=== PATIENT | male | born 1960 | race American Indian/Alaskan Native ===

== ENCOUNTER 2017-07-23 11:05 | Emergency (ER) | payer MEDICAID, OTHER ==
[2017-07-23 11:40] LABS: BASO % 0.4 % (0.0-2.0); EOS % 0.2 % (0.0-4.0); HEMOGLOBIN 13.2 g/dL (12.0-18.0); LYMPH # 0.4 K/uL (1.0-4.3); LYMPH % 4.5 % (20.0-40.0); MEAN CELL VOLUME 89.3 fL (80.0-94.0); MEAN CORPUSCULAR HEMOGLOBIN 30.4 pg (27.0-31.0); MEAN CORPUSCULAR HGB CONC 34.1 g/dL (33.0-37.0); MEAN PLATELET VOLUME 8.5 fL (7.2-11.7); MONO # 0.7 K/uL (0.0-0.8); MONO % 8.1 % (0.0-10.0); NEUT # 7.9 K/uL (1.8-7.0); NEUT % 86.8 % (50.0-75.0); PLATELET COUNT 161 K/uL (130-400); RBC 4.34 Mil/uL (4.40-5.90); RED CELL DISTRIBUTION WIDTH 14.3 % (11.5-14.5); WHITE BLOOD COUNT 9.1 K/uL (4.8-10.8)
[2017-07-23 11:52] LABS: ALB/GLOB RATIO 1.1 (1.0-2.1); ALBUMIN 4.2 g/dL (3.5-5.0); ALT/SGPT 65 U/L (21-72); AST/SGOT 71 U/L (17-59); BLOOD UREA NITROGEN 13 mg/dL (9-20); CALCIUM 8.9 mg/dl (8.6-10.4); GFR AFRICAN-AMERICAN > 60; GFR NON-AFRICAN AMERICAN > 60; LIPASE 152 U/L (23-300)
[2017-07-23] MEDS ORDERED: Sodium Chloride 0.9% 1,000 ML IV ONE (11:59)
[2017-07-23] MEDS ORDERED: Iohexol 240 (50 ml) PO STA (11:59)
[2017-07-23 12:15] LABS: BANDS 4 % (0-2); LYMPHOCYTE 2 % (20-40); MONOCYTE 9 % (0-10); NEUTROPHIL 85 % (50-75); PLATELET ESTIMATE NORMAL (NORMAL); TOTAL CELLS COUNTED 100
[2017-07-23] MEDS ORDERED: Morphine 4 MG/ML VIAL ONE (12:15)
[2017-07-23] MEDS ORDERED: Iohexol 240 (50 ml) ONE (12:15)
[2017-07-23] MEDS ORDERED: Potassium Chloride 20 mEq/15 ml LIQ UD PO STA (12:17)
--- NOTE | 2017-07-23 12:24 | C.PDOC ---
History Of Present Illness 57 year old male is brought to the ED by his son for evaluation of abdominal pain and multiple episodes of vomit this morning. As per son, patient was smoking dope yesterday. Patient is a poor historian, uncooperative with history taking and examination. 610 pm pt found to have patchy infiltrate in lingula and bilateral lung bases, on ct scan abdomen, no acute findings on limited study of abdomen (no po contrast). blood cultures drawn, pt given first dose of antibiotics in ED and will d/c with po Levaquin. pt tolerating po fluids in ED and abdominal pain has resolved. 7 10 pm s/o to Dr Varghese to d/c pt after antibiotics started. Time Seen by Provider: 07/23/17 11:40 Chief Complaint (Nursing): Abdominal Pain History Per: Patient, Family History/Exam Limitations: other (No cooperation) Onset/Duration Of Symptoms: Days Current Symptoms Are (Timing): Still Present Radiation Of Pain To:: None Quality Of Discomfort: Unable To Describe Associated Symptoms: Vomiting Exacerbating Factors: None Alleviating Factors: None Recent travel outside of the [place]: No Additional History Per: Patient, Family Past Medical History Reviewed: Historical Data, Nursing Documentation, Vital Signs Vital Signs: Last Vital Signs Temp 98.6 F 07/23/17 14:42 Pulse 50 L 07/23/17 18:07 Resp 16 07/23/17 18:07 BP 139/78 07/23/17 18:07 Pulse Ox 98 07/23/17 19:16 - Medical History PMH: Asthma Surgical History: Cholecystectomy - [facility] Procedures APPLICATION OF SPLINT (11/11/14) REMOV EXT IMMOBILIZATION (11/13/14) Family History: States: Unknown Family Hx - Social History Hx Tobacco Use: No Hx Alcohol Use: No Hx Substance Use: No - Immunization History Hx Tetanus Toxoid Vaccination: No Hx Influenza Vaccination: No Hx Pneumococcal Vaccination: No Review Of Systems Constitutional: Negative for: Fever, Chills Cardiovascular: Negative for: Chest Pain Respiratory: Negative for: Cough, Shortness of Breath Gastrointestinal: Positive for: Vomiting, Abdominal Pain Genitourinary: Negative for: Dysuria Musculoskeletal: Negative for: Back Pain Skin: Negative for: Rash Neurological: Negative for: Weakness, Numbness Physical Exam - Physical Exam Appears: Non-toxic, Unkempt, Other (uncomfortable ) Skin: Normal Color, Warm, Dry Head: Atraumatic, Normacephalic Eye(s): bilateral: Normal Inspection Nose: No Discharge, No Deformity Oral Mucosa: Moist Neck: Normal ROM, Supple Chest: Symmetrical Cardiovascular: Rhythm Regular, No Murmur Respiratory: Normal Breath Sounds, No Rales, No Rhonchi, No Wheezing Gastrointestinal/Abdominal: Soft, Tenderness (diffuse ), No Guarding, No Rebound , Other (vertical scar that according to patient was for "kidney stones") Extremity: Normal ROM, No Deformity, No Swelling Neurological/Psych: Oriented x3, Normal Speech, Normal Cognition Gait: Steady ED Course And Treatment - Laboratory Results Result Diagrams: 07/23/17 11:37 07/23/17 11:37 O2 Sat by Pulse Oximetry: 98 (On RA) Pulse Ox Interpretation: Normal - CT Scan/US CT abd/pelvis Other Rad Studies (CT/US): Read By Radiologist, Radiology Report Reviewed CT/US Interpretation: PROCEDURE: CT Abdomen and Pelvis with contrast. HISTORY : abd pain. COMPARISON: None available. TECHNIQUE: Contrast dose: 100 cc Visipaque 320. Radiation dose: Total exam DLP = 368.10 MGy-cm. This CT exam was performed using one or more of the following dose reduction techniques: Automated exposure control, adjustment of the mA and/or kV according to patient size, and/or use of iterative reconstruction technique. FINDINGS: Examination limited due to lack of IV and oral contrast as well as paucity of intra- abdominal or intrapelvic fat. LOWER THORAX: Patchy consolidations within the lingula and bilateral lower lobes. 12 x 6 mm focal nodular density at the left lung base (series 5, image 13) likely related to consolidation however follow- up to resolution to exclude possibility of pulmonary nodule. No visible pleural effusion or pneumothorax. Small hiatal hernia/distal esophageal wall thickening. LIVER: Unremarkable. GALLBLADDER AND BILE DUCTS: Unremarkable. PANCREAS: Unremarkable. SPLEEN: Unremarkable. ADRENALS: Unremarkable. KIDNEYS AND URETERS: The kidneys enhance symmetrically. No hydronephrosis or obstructing calculus identified. 1.8 cm right renal hypodense lesion measures approximately 6 HU consistent with a cyst. VASCULATURE: No aortic aneurysm. BOWEL: Stomach is nondistended. Lack of oral contrast limits evaluation for bowel pathology. Bowel loops appear within normal limits of caliber without evidence of obstruction. Moderate constipation. APPENDIX: Not visualized. No secondary signs of acute appendicitis. PERITONEUM: No significant free fluid. No definite free air. LYMPH NODES: No bulky adenopathy identified. BLADDER : Unremarkable. REPRODUCTIVE: Prostate gland measures approximately 3.9 x 4.7 cm. BONES: Degenerative changes. OTHER FINDINGS: Partially imaged 26 x 11 mm fatty density in the right anterior subcu chest consistent with lipoma. IMPRESSION: Limited study. Patchy consolidations within the lingula and bilateral lower lobes, favored to reflect pneumonia. 12 x 6 mm focal nodular density at the left lung base likely related to consolidation however follow- up to resolution to exclude possibility of pulmonary nodule. Borderline enlarged prostate gland ; correlate with PSA. Additional findings as above. Medical Decision Making Medical Decision Making: Impression: abdominal pain Plan: * CT abd/pelvis * Labs * Morphine 2 mg IVP * Omnipaque 50 ml PO * Pepcid 20 mg IVP * Zofran 4 mg IVP * Potassium chloride 40 meq PO * IV fluids * UA pt may be in withdrawal from heroin; adfter receiving morphine, pt comfortable, sleeping, in no acute distress. Disposition Counseled Patient/Family Regarding: Studies Performed, Diagnosis, Need For Followup, Rx Given - Disposition Referrals: [facility] at [facility] [Outside] Disposition: HOME/ ROUTINE Disposition Time: 19:16 Condition: IMPROVED Additional Instructions: Take antibiotics as prescribed. Please consider detox program for your substance abuse. Follow up in medical clinic or with your doctor in in 1-2 days. Return to ER for any worsening symptoms. Prescriptions: Levofloxacin [Levaquin] 750 mg PO DAILY #5 tablet Instructions: Community Acquired Pneumonia (ED), Polysubstance Abuse (ED) Forms: [facility] (Czech), General Discharge Instructions - Clinical Impression Clinical Impression: Pneumonia, Polysubstance abuse - PA / STRIP TANK TENDER / Resident Statement MD/DO has reviewed & agrees with the documentation as recorded. - Scribe Statement The provider has reviewed the documentation as recorded by the Scribe Jacobo Eldridge All medical record entries made by the Scribe were at my direction and personally dictated by me. I have reviewed the chart and agree that the record accurately reflects my personal performance of the history, physical exam, medical decision making, and the department course for this patient. I have also personally directed, reviewed, and agree with the discharge instructions and disposition. Physician Patient Turnover Patient Signed Over To: Marito Varghese Handoff Comments: d/c with levaquin po after dose iv antibiotics completed.
[2017-07-23] MEDS ORDERED: Potassium Chloride 20 mEq/15 ml LIQ UD ONE (12:39)
[2017-07-23] MEDS ORDERED: Aluminum Hydroxide/Magnesium Hydroxide Susp (30 mL) PO STA (14:10)
[2017-07-23 14:11] LABS: URINE BILIRUBIN NEGATIVE (NEGATIVE); URINE BLOOD NEGATIVE (NEGATIVE); URINE CLARITY Clear (Clear); URINE COLOR Yellow (YELLOW); URINE GLUCOSE (UA) NORMAL (Normal); URINE LEUKOCYTE ESTERASE NEG Leu/uL (Negative); URINE NITRATE NEGATIVE (NEGATIVE); URINE PROTEIN NEGATIVE (NEGATIVE)
[2017-07-23] MEDS ORDERED: Aluminum Hydroxide/Magnesium Hydroxide Susp (30 mL) ONE (14:14)
[2017-07-23 14:27] LABS: BARBITURATES, UR NEGATIVE (NEGATIVE); BENZODIAZEPINES, UR NEGATIVE (NEGATIVE); PHENCYCLIDINE, UR NEGATIVE (NEGATIVE)
[2017-07-23 14:57] LABS: OPIATES, UR POSITIVE (NEGATIVE)
[2017-07-23] MEDS ORDERED: Iodixanol 320 MG/ML 100 ML BOTTLE IV ONE (16:33)
--- NOTE | 2017-07-23 17:29 | CT ---
PROCEDURE: CT Abdomen and Pelvis with contrast HISTORY: abd pain COMPARISON: None available. TECHNIQUE: Contrast dose: 100 cc Visipaque 320 Radiation dose: Total exam DLP = 368.10 MGy-cm. This CT exam was performed using one or more of the following dose reduction techniques: Automated exposure control, adjustment of the mA and/or kV according to patient size, and/or use of iterative reconstruction technique. FINDINGS: Examination limited due to lack of IV and oral contrast as well as paucity of intra-abdominal or intrapelvic fat. LOWER THORAX: Patchy consolidations within the lingula and bilateral lower lobes. 12 x 6 mm focal nodular density at the left lung base (series 5, image 13) likely related to consolidation however follow-up to resolution to exclude possibility of pulmonary nodule. No visible pleural effusion or pneumothorax. Small hiatal hernia/distal esophageal wall thickening. LIVER: Unremarkable. GALLBLADDER AND BILE DUCTS: Unremarkable. PANCREAS: Unremarkable. SPLEEN: Unremarkable. ADRENALS: Unremarkable. KIDNEYS AND URETERS: The kidneys enhance symmetrically. No hydronephrosis or obstructing calculus identified. 1.8 cm right renal hypodense lesion measures approximately 6 HU consistent with a cyst. VASCULATURE: No aortic aneurysm. BOWEL: Stomach is nondistended. Lack of oral contrast limits evaluation for bowel pathology. Bowel loops appear within normal limits of caliber without evidence of obstruction. Moderate constipation. APPENDIX: Not visualized. No secondary signs of acute appendicitis. PERITONEUM: No significant free fluid. No definite free air. LYMPH NODES: No bulky adenopathy identified. BLADDER: Unremarkable. REPRODUCTIVE: Prostate gland measures approximately 3.9 x 4.7 cm. BONES: Degenerative changes. OTHER FINDINGS: Partially imaged 26 x 11 mm fatty density in the right anterior subcu chest consistent with lipoma IMPRESSION: Limited study. Patchy consolidations within the lingula and bilateral lower lobes, favored to reflect pneumonia. 12 x 6 mm focal nodular density at the left lung base likely related to consolidation however follow-up to resolution to exclude possibility of pulmonary nodule. Borderline enlarged prostate gland ; correlate with PSA. Additional findings as above.
[2017-07-23 17:40] VITALS: O2SAT 98
[2017-07-23] MEDS ORDERED: cefTRIAXone IV 1 gm in Dextros 1 GM in Dextrose 5% In Water 50 ML IVPB STA (18:09)
[2017-07-23] MEDS ORDERED: cefTRIAXone IV 1 gm in Dextros 50 ML IVPB ONE (18:18)
[2017-07-23 19:52] VITALS: BP 136/86; PULSE 56; RESP 18; TEMP 98.2
== END 2017-07-23 20:04 | disposition home or self-care (01) ==
LOC: C.ER 11:05
DX: J18.9 Pneumonia, unspecified organism (principal); F19.10 Other psychoactive substance abuse, uncomplicated
CPT/HCPCS: 74177; 80053; 80320; 80324; 80345; 80346; 80349; 80353; 80358; 80361; 81001; 83690; 83992; 85025; 87040; 96361; 96365; 96367; 96375; 99285; J0696; J2270; J2405; J2765; J7040; Q9966; Q9967

== ENCOUNTER 2017-07-25 00:04 | Inpatient (IN) | payer MEDICAID ==
[2017-07-25] MEDS ORDERED: Sodium Chloride 0.9% 1,000 ML IV ONE ×2 (01:10→03:13)
--- NOTE | 2017-07-25 01:12 | C.PDOC ---
History Of Present Illness Patient states that he has been having abdominal pain and vomited at home some "red stuff" denies coughing up blood. Pt was seen in the ed on 07/23 and diagnosed with pneumonia nd polysubstance abuse. Placed on levaquin. No f/c/ no cp or palpitations. requesting pain medication Time Seen by Provider: 07/25/17 01:09 Chief Complaint (Nursing): Abdominal Pain History Per: Patient History/Exam Limitations: no limitations Onset/Duration Of Symptoms: Hrs Current Symptoms Are (Timing): Still Present Context: Other Severity: Moderate Pain Scale Rating Of: 5 Location Of Pain/Discomfort: Diffuse Radiation Of Pain To:: None Quality Of Discomfort: Sharp, Cramping Associated Symptoms: Nausea, Vomiting. denies: Fever, Chills, Constipation Exacerbating Factors: Food Alleviating Factors: None Last Bowel Movement: Yesterday Recent travel outside of the [place]: No Additional History Per: Patient Past Medical History Reviewed: Historical Data, Nursing Documentation, Vital Signs Vital Signs: Last Vital Signs Temp 98.6 F 07/25/17 00:18 Pulse 85 07/25/17 00:18 Resp 20 07/25/17 00:18 BP 120/79 07/25/17 00:18 Pulse Ox 99 07/25/17 03:46 - Medical History PMH: Gastritis Denies: Asthma Surgical History: Cholecystectomy - [facility] Procedures APPLICATION OF SPLINT (11/11/14) REMOV EXT IMMOBILIZATION (11/13/14) Family History: States: No Known Family Hx - Social History Hx Tobacco Use: No Hx Alcohol Use: Yes Hx Substance Use: No - Immunization History Hx Tetanus Toxoid Vaccination: No Hx Influenza Vaccination: No Hx Pneumococcal Vaccination: No Review Of Systems Constitutional: Negative for: Fever, Chills ENT: Negative for: Throat Pain Cardiovascular: Negative for: Chest Pain Respiratory: Negative for: Shortness of Breath Gastrointestinal: Positive for: Nausea, Vomiting, Abdominal Pain, Hematemesis Musculoskeletal: Negative for: Back Pain Skin: Negative for: Rash Neurological: Negative for: Weakness Psych: Negative for: Anxiety Physical Exam - Physical Exam Appears: Non-toxic Skin: Warm, Dry Head: Normacephalic Eye(s): bilateral: Normal Inspection Oral Mucosa: Moist Teeth: Other (poor dentition) Throat: No Erythema Neck: Supple Chest: Symmetrical Cardiovascular: Rhythm Regular Respiratory: No Rales, No Rhonchi, No Wheezing Gastrointestinal/Abdominal: Soft, Tenderness (diffuse), No Distention, Guarding (voluntary), No Rebound Back: No CVA Tenderness Extremity: Normal ROM Extremity: Bilateral: Atraumatic Pulses: Left Dorsalis Pedis: Normal, Right Dorsalis Pedis: Normal Neurological/Psych: Oriented x3 Gait: Steady ED Course And Treatment - Laboratory Results Result Diagrams: 07/25/17 01:26 07/25/17 01:26 ECG: Interpreted By Me, Viewed By Me ECG Rhythm: Sinus Rhythm (61), Nonspecific Changes O2 Sat by Pulse Oximetry: 99 Pulse Ox Interpretation: Normal - Radiology CXR: Interpreted by Me, Viewed By Me CXR Interpretation: No: Infiltrates, Fracture, Pnemothorax Disposition Discussed With : Mona Puentes Comment: accepted the pt on his service and took over the care at 3:45 AM Doctor Will See Patient In The: Hospital Counseled Patient/Family Regarding: Studies Performed, Diagnosis - Disposition Disposition: HOSPITALIZED Disposition Time: 01:10 Condition: FAIR Forms: [facility] (Samoan) - POA Present On Arrival: None - Clinical Impression Clinical Impression: Abdominal pain, Polysubstance abuse, Pneumonia, Hemoptysis Decision To Admit - Pt Status Changed To: Hospital Disposition Of: Inpatient - Admit Certification Admit to Inpatient:: After my assessment, the patient will require hospitalization for at least two midnights. This is because of the severity of symptoms shown, intensity of services needed, and/or the medical risk in this patient being treated as an outpatient. - InPatient: Physician Admission Certification:: After my assessment, the patient will require hospitalization for at least two midnights. This is because of the severity of symptoms shown, intensity of services needed, and/or the medical risk in this patient being treated as an outpatient. - . Bed Request Type: Regular Admitting Physician: Mona Puentes Patient Diagnosis: Abdominal pain, Polysubstance abuse, Pneumonia
[2017-07-25] MEDS ORDERED: Sodium Chloride 0.9% 1,000 ML ONE (01:18)
[2017-07-25 01:29] LABS: BASO # 0.1 K/uL (0.0-0.2); BASO % 0.6 % (0.0-2.0); EOS # 0.1 K/uL (0.0-0.7); EOS % 0.5 % (0.0-4.0); HEMOGLOBIN 13.6 g/dL (12.0-18.0); LYMPH # 2.1 K/uL (1.0-4.3); LYMPH % 20.6 % (20.0-40.0); MEAN CELL VOLUME 89.6 fL (80.0-94.0); MEAN CORPUSCULAR HEMOGLOBIN 29.9 pg (27.0-31.0); MEAN CORPUSCULAR HGB CONC 33.4 g/dL (33.0-37.0); MEAN PLATELET VOLUME 9.3 fL (7.2-11.7); MONO # 0.7 K/uL (0.0-0.8); MONO % 7.1 % (0.0-10.0); NEUT # 7.3 K/uL (1.8-7.0); NEUT % 71.2 % (50.0-75.0); RBC 4.56 Mil/uL (4.40-5.90); RED CELL DISTRIBUTION WIDTH 14.1 % (11.5-14.5); WHITE BLOOD COUNT 10.2 K/uL (4.8-10.8)
[2017-07-25] MEDS ORDERED: Morphine 4 MG/ML VIAL ONE (01:31)
[2017-07-25 01:39] LABS: PROTHROMBIN TIME 11.2 SECONDS (9.7-12.2)
[2017-07-25 01:51] LABS: ALB/GLOB RATIO 1.1 (1.0-2.1); ALBUMIN 4.2 g/dL (3.5-5.0); ALT/SGPT 50 U/L (21-72); AST/SGOT 72 U/L (17-59); BLOOD UREA NITROGEN 12 mg/dL (9-20); CALCIUM 8.6 mg/dl (8.6-10.4); GFR AFRICAN-AMERICAN > 60; GFR NON-AFRICAN AMERICAN > 60; LIPASE 173 U/L (23-300)
[2017-07-25] MEDS ORDERED: Iohexol 300 100 ML IJ ONE (02:16)
[2017-07-25 02:21] LABS: URINE BILIRUBIN NEGATIVE (NEGATIVE); URINE BLOOD NEGATIVE (NEGATIVE); URINE CLARITY Clear (Clear); URINE COLOR Straw (YELLOW); URINE GLUCOSE (UA) NORMAL (Normal); URINE LEUKOCYTE ESTERASE NEG Leu/uL (Negative); URINE NITRATE NEGATIVE (NEGATIVE); URINE PROTEIN NEGATIVE (NEGATIVE); URINE UROBILINOGEN NORMAL mg/dL (0.2-1.0)
--- NOTE | 2017-07-25 03:16 | CT ---
EXAM: CT Chest With Intravenous Contrast EXAM DATE/TIME: 07/25/2017 2:07 AM CLINICAL HISTORY: 57 years old, male; Pain; Chest pain; Additional info: Pneumonia, ? lingular mass TECHNIQUE: Axial computed tomography images of the chest with intravenous contrast. All CT scans at this facility use one or more dose reduction techniques, viz.: automated exposure control; ma/kV adjustment per patient size (including targeted exams where dose is matched to indication; i.e. head); or iterative reconstruction technique. Coronal and sagittal reformatted images were created and reviewed. CONTRAST: 100 mL of [id number] administered intravenously. COMPARISON: No relevant prior studies available. FINDINGS: LUNGS: Multifocal areas of groundglass density in the lungs bilaterally, with an appearance most suggestive of groundglass consolidation secondary to a multifocal, bilateral pneumonia. The degree of consolidation is greatest in the left upper lobe and lingula, where there are moderate-sized, confluent areas of consolidation seen. There are also patchy areas of consolidation in the lower lobes bilaterally. Right middle and upper lobes appear relatively spared by this process. Small amount of density in the tracheal lumen on the right and the right mainstem bronchus, which could represent mucus plugging or aspirated material. This does not occlude the trachea. No evidence of diffuse pulmonary vascular congestion. No evidence of suspicious, spiculated lung masses. PLEURAL SPACE: No pneumothorax or significant pleural effusions seen. HEART: Heart appears mildly enlarged. Coronary artery calcification. No evidence of significant pericardial effusion. BONES/JOINTS: Findings compatible with a remote fractures involving the left distal clavicle and upper scapula. Osteoarthritic changes involving the right glenohumeral joint. No acute bony abnormality visualized. SOFT TISSUES: Lipoma incidentally noted in the right anterior chest wall soft tissues. VASCULATURE: No evidence of pulmonary embolism involving the large/central pulmonary arteries. The exam is nondiagnostic for small pulmonary emboli, however. Exam is nondiagnostic for the detection of aortic dissection because of suboptimal enhancement of the aorta. LYMPH NODES: No evidence of diffuse lymphadenopathy. GALLBLADDER AND BILE DUCTS: Mild biliary ductal dilatation, most likely related to the post cholecystectomy state. Normal gallbladder is not seen. Recommend correlation with surgical history and LFTs. KIDNEYS AND URETERS: Low density lesion in the right kidney, most likely a cyst. This measures 2 cm. IMPRESSION: - FINDINGS HIGHLY SUSPICIOUS FOR A MULTIFOCAL, BILATERAL GROUNDGLASS PNEUMONIA, GREATEST IN THE LEFT UPPER LOBE AND LINGULA. RECOMMEND FOLLOWUP TO DOCUMENT CLEARING. - Small amount of mucus plugging or aspirated debris in the trachea and right mainstem bronchus. - Otherwise, no evidence of significant acute process. - See above for remaining findings.
[2017-07-25 03:28] LABS: BENZODIAZEPINES, UR NEGATIVE (NEGATIVE)
[2017-07-25 03:31] LABS: BARBITURATES, UR NEGATIVE (NEGATIVE)
[2017-07-25 03:32] LABS: PHENCYCLIDINE, UR NEGATIVE (NEGATIVE)
[2017-07-25 03:33] LABS: OPIATES, UR POSITIVE (NEGATIVE)
[2017-07-25] MEDS ORDERED: Piperacillin/Tazobact 3.375 gm 100 ML IVPB STA (03:39)
[2017-07-25] MEDS ORDERED: Piperacillin/Tazobact 3.375 gm 100 ML IVPB ONE (04:26)
[2017-07-25] MEDS ORDERED: Albuterol-Ipratrop 3 mg / 0.5 (3 ml) UD INH PRN (07:24)
[2017-07-25] MEDS: Enoxaparin 40 mg Syringe SC SCH (09:45)
[2017-07-25] MEDS ORDERED: Multiple Vitamins Oral Solution PO SCH (10:00)
--- NOTE | 2017-07-25 10:22 | RAD ---
PROCEDURE: CHEST RADIOGRAPH, 1 VIEW HISTORY: Abdominal pain COMPARISON: None available. FINDINGS: LUNGS: The lungs are well inflated. There is subsegmental atelectasis in the left lower lobe. PLEURA: No pneumothorax or pleural fluid seen. CARDIOVASCULAR: Normal. OSSEOUS STRUCTURES: No significant abnormalities. VISUALIZED UPPER ABDOMEN: Normal. OTHER FINDINGS: None. IMPRESSION: No active pulmonary disease.
[2017-07-25 10:45] LABS: LEGIONELLA AG URINE NEGATIVE (NEGATIVE)
[2017-07-25] MEDS: Azithromycin 500 MG in Sodium Chloride 0.9% 250 ML IVPB SCH (11:28)
[2017-07-25 11:30] LABS: MYCOPLASMA PNEUMONIAE IGM NEGATIVE (NEGATIVE)
[2017-07-25] MEDS: Vancomycin 1 gm/NS 200 ml 1 GM/200 ML BAG IVPB SCH (13:29)
--- NOTE | 2017-07-25 15:41 | CP.PCM.PN ---
Subjective - Date & Time of Evaluation Date of Evaluation: 07/25/17 Time of Evaluation: 08:00 - Subjective Subjective: PGY 2 medicine progress note for Dr. Puentes: Patient states that he has been having abdominal pain and vomited at home some "red stuff" denies coughing up blood. Pt was seen in the ed on 07/23 and diagnosed with pneumonia and polysubstance abuse. Placed on levaquin but patient has not been taking. Patient states he is short of breath and has a productive cough which sometimes has blood in it. He admits to chills but denies fevers, chest pain, palpitations, N/V, abd pain, pain or swelling in the extremities. Patient states he will get tremors if he does not drink but has never had "bad withdrawal" or withdrawal seizures. Last drink and heroin use was Sunday. PMhx - Asthma, polysubstance use Surg - cholecystectomy Meds - none Allergies - NKDA Fam hx - denies Social - patient has been smoking cigarettes 1 ppd for many years, smokes 4-5 bags heroin daily, admits to alcohol use last drink Sunday AM Objective - Vital Signs/Intake and Output Vital Signs (last 24 hours): Temp Pulse Resp BP Pulse Ox 97.8 F 60 18 116/70 97 07/25/17 11:30 07/25/17 11:30 07/25/17 11:30 07/25/17 11:30 07/25/17 11:30 - Medications Medications: Current Medications Albuterol/Ipratropium (Duoneb 3 Mg/0.5 Mg (3 Ml) Ud) 3 ml INH RQ6 PRN PRN Reason: Wheezing Enoxaparin Sodium (Lovenox) 40 mg SC DAILY [facility] Last Admin: 07/25/17 09:45 Dose: 40 mg Famotidine (Pepcid) 20 mg PO BID [facility] Last Admin: 07/25/17 09:45 Dose: 20 mg Folic Acid (Folic Acid) 1 mg PO DAILY [facility] Last Admin: 07/25/17 09:45 Dose: 1 mg Azithromycin 500 mg/ Sodium (Chloride) 250 mls @ 250 mls/hr IVPB DAILY [facility] Last Admin: 07/25/17 11:28 Dose: 250 mls/hr Ceftriaxone Sodium 1 gm/ (Sodium Chloride) 100 mls @ 100 mls/hr IVPB DAILY [facility] Last Admin: 07/25/17 09:53 Dose: 100 mls/hr Vancomycin/Sodium Chloride (Vancomycin 1 Gm/Ns 200 Ml) 1 gm in 200 mls @ 166.6 mls/hr IVPB Q12H [facility] Stop: 07/30/17 12:31 Last Admin: 07/25/17 13:29 Dose: 166.6 mls/hr Multivitamins/Vitamin C (Multi-Delyn Liquid) 5 ml PO DAILY [facility] Last Admin: 07/25/17 09:45 Dose: 5 ml Thiamine HCl (Vitamin B1 Tab) 100 mg PO DAILY [facility] Last Admin: 07/25/17 09:46 Dose: 100 mg - Labs Labs: 07/25/17 01:26 07/25/17 01:26 PT 11.2 SECONDS (9.7-12.2) 07/25/17 01:26 INR 1.0 07/25/17 01:26 APTT 27 SECONDS (21-34) 07/25/17 01:26 - Constitutional Appears: Non-toxic, No Acute Distress, Unkempt - Head Exam Head Exam: ATRAUMATIC, NORMAL INSPECTION - Eye Exam Eye Exam: EOMI Pupil Exam: NORMAL ACCOMODATION - ENT Exam ENT Exam: Mucous Membranes Dry - Respiratory Exam Respiratory Exam: Decreased Breath Sounds, Wheezes, NORMAL BREATHING PATTERN. absent: Accessory Muscle Use, Respiratory Distress - Cardiovascular Exam Cardiovascular Exam: REGULAR RHYTHM, +S1, +S2 - GI/Abdominal Exam GI & Abdominal Exam: Soft, Normal Bowel Sounds. absent: Distended, Firm, Tenderness - Extremities Exam Extremities Exam: Normal Inspection. absent: Calf Tenderness, Pedal Edema - Back Exam Back Exam: NORMAL INSPECTION. absent: CVA tenderness (L), CVA tenderness (R), paraspinal tenderness - Neurological Exam Neurological Exam: Alert, Awake, Oriented x3 - Psychiatric Exam Psychiatric exam: Normal Affect, Normal Mood - Skin Skin Exam: Diaphoretic, Intact, Normal Color, Warm Assessment and Plan - Assessment and Plan (Free Text) Assessment: Pneumonia f/u sputum culture Urine legionella and mycoplasma negative f/u influenza, Quantiferon CT Chest 07/25 - finding highly suspicious for a multifocal bilateral groundglass pneumonia greatest in the upper lobe and lingula. small amount of mucus plugging or aspirated debris in the trachea and right mainstem brochus Ceftriaxone 1gram IVPB daily (started 07/25) Azithromycin 500mg IVPB daily (started 07/25) Duonebs prn f/u am labs Bacteremia f/u echo to rule out endocarditis Blood cultures 07/23: prelim: gram positive cocci ID consulted, Dr. Vergara - help appreciated Vancomycin 1gram Q12 hours started 07/25 f/u Vanc trough Sunday am Alcohol Use disorder Monitor for signs of withdrawal Alchol level on admission 206 folic acid/mv/thiamine dialy seizure/aspiration precautions Polysubstance use disorder monitor for signs of withdrawal f/u Psych recommendations - Dr. Franco Prophylactic measures Lovenox 40mg SC daily Pepcid 20mg PO BID Regular diet
--- NOTE | 2017-07-25 18:57 | CP.PCM.CON ---
History of Present Illness - History of Present Illness History of Present Illness: Patient states that he has been having abdominal pain and vomited at home some "red stuff" seen in the ed on 07/23 and diagnosed with pneumonia and polysubstance abuse. Placed on levaquin but patient has not been taking. Patient states he is short of breath and has a productive cough which sometimes has blood in it. He admits to chills but denies fevers, chest pain, palpitations, N/V, abd pain, pain or swelling in the extremities. Patient states he will get tremors if he does not drink but has never had "bad withdrawal" or withdrawal seizures. Last drink and heroin use was Sunday. PMhx - Asthma, polysubstance use Surg - cholecystectomy Meds - none Allergies - NKDA Fam hx - denies Social - patient has been smoking cigarettes 1 ppd for many years, smokes 4-5 bags heroin daily, admits to alcohol use last drink Sunday AM Review of Systems - Review of Systems All systems: reviewed and no additional remarkable complaints except - Constitutional Constitutional: As Per HPI - EENT Eyes: absent: As Per HPI, Blind Spots, Blurred Vision, Change in Vision, Decreased Night Vision, Diplopia, Discharge, Dry Eye, Exophthalmos, Floaters, Irritation, Itchy Eyes, Loss of Peripheral Vision, Pain, Photophobia, Requires Corrective Lenses, Sees Flashes, Spots in Vision, Tunnel Vision, Other Visual Disturbances, Loss of Vision, Other Ears: absent: As Per HPI, Decreased Hearing, Ear Discharge, Ear Pain, Tinnitus, Abnormal Hearing, Disequilibrium, Dizziness, Other Nose/Mouth/Throat: absent: As Per HPI, Epistaxis, Nasal Congestion, Nasal Discharge, Nasal Obstruction, Nasal Trauma, Nose Pain, Post Nasal Drip, Sinus Pain, Sinus Pressure, Bleeding Gums, Change in Voice, Dental Pain, Dry Mouth, Dysphagia, Halitosis, Hoarsness, Lip Swelling, Mouth Lesions, Mouth Pain, Odynophagia, Sore Throat, Throat Swelling, Tongue Swelling, Facial Pain, Neck Pain, Neck Mass, Other - Cardiovascular Cardiovascular: absent: As Per HPI, Acrocyanosis, Chest Pain, Chest Pain at Rest , Chest Pain with Activity, Claudication, Diaphoresis, Dyspnea, Dyspnea on Exertion, Edema, Irregular Heart Rhythm, Pain Radiating to Arm/Neck/Jaw, Leg Edema, Leg Ulcers, Lightheadedness, Orthopnea, Palpitations, Paroxysmal Nocturnal Dyspnea, Pedal Edema, Radiating Pain, Rapid Heart Rate, Slow Heart Rate, Syncope, Other - Respiratory Respiratory: As Per HPI, Cough, Hemoptysis - Gastrointestinal Gastrointestinal: absent: As Per HPI, Abdominal Pain, Belching, Bloating, Change in Bowel Habits, Change in Stool Character, Coffee Ground Emesis, Constipation, Cramping, Diarrhea, Dyspepsia, Dysphagia, Early Satiety, Excessive Flatus, Fecal Incontinence, Heartburn, Hematemesis, Hematochezia, Loose Stools, Melena, Nausea, Odynophagia, Temesmus, Vomiting, Other - Genitourinary Genitourinary: absent: As Per HPI, Change in Urinary Stream, Difficulty Urinating, Dysuria, Flank Pain, Hematuria, Pyuria, Nocturia, Urinary Incontinence, Urinary Frequency, Urinary Hesitance, Urinary Urgency, Voiding Freq/Small Amts, Freq UTI, Hx Renal/Bladder Calculi, Hx /Renal Surgery, Bladder Distension, Other - Musculoskeletal Musculoskeletal: absent: As Per HPI, Abnormal Gait, Arthralgias, Atrophy, Back Pain, Deformity, Joint Swelling, Limited Range of Motion, Loss of Height, Muscle Cramps, Muscle Weakness, Myalgias, Neck Pain, Numbness, Radiating Pain into Limb, Stiffness, Tingling, Other - Integumentary Integumentary: absent: As Per HPI, Acne, Alopecia, Bleeding Lesions, Change in Hair, Change in Nails, Change in Pigmentation, Changing Lesions, Dry Skin, Erythema, Furuncle, Hirsutism, Lesions, New Lesions, Non-Healing Lesions, Photosensitivity, Pruritus, Rash, Skin Pain, Skin Ulcer, Sores, Striae, Swelling , Unusual Bruising, Wounds, Jaundice, Other - Neurological Neurological: absent: As Per HPI, Abnormal Gait, Abnormal Hearing, Abnormal Movements, Abnormal Speech, Behavioral Changes, Burning Sensations, Confusion, Convulsions, Disequilibrium, Dizziness, Numbness, Focal Weakness, Frequent Falls , Headaches, Lack of Coordination, Loss of Vision, Memory Loss, Paresthesias, Radicular Pain, Restless Legs, Sensory Deficit, Syncope, Tingling, Tremor, Vertigo, Weakness, Other Visual Disturbances, Other - Psychiatric Psychiatric: absent: As Per HPI, Abnormal Sleep Pattern, Anhedonia, Anxiety, Auditory Hallucinations, Behavioral Changes, Change in Appetite, Change in Libido, Confusion, Depression, Difficulty Concentrating, Hallucinations, Homicidal Ideation, Hopelessness, Irritability, Memory Loss, Mood Swings, Panic Attacks, Paranoia, Suicidal Ideation, Visual Hallucinations, Tactile Hallucinations, Other Past Patient History - Past Social History Smoking Status: Former Smoker - PULMONARY Hx Asthma: No - MUSCULOSKELETAL/RHEUMATOLOGICAL Hx Falls: No - GASTROINTESTINAL Hx Gastritis: Yes - PSYCHIATRIC Hx Substance Use: Yes (ETOH, OPIATES) - SURGICAL HISTORY Hx Cholecystectomy: Yes - ANESTHESIA Hx Anesthesia: Yes Hx Anesthesia Reactions: No Meds Allergies/Adverse Reactions: Allergies Allergy/AdvReac Type Severity Reaction Status Date / Time No Known Allergies Allergy Verified 07/25/17 00:25 - Medications Medications: Current Medications Albuterol/Ipratropium (Duoneb 3 Mg/0.5 Mg (3 Ml) Ud) 3 ml INH RQ6 PRN PRN Reason: Wheezing Enoxaparin Sodium (Lovenox) 40 mg SC DAILY [facility] Last Admin: 07/25/17 09:45 Dose: 40 mg Famotidine (Pepcid) 20 mg PO BID [facility] Last Admin: 07/25/17 17:42 Dose: 20 mg Folic Acid (Folic Acid) 1 mg PO DAILY [facility] Last Admin: 07/25/17 09:45 Dose: 1 mg Azithromycin 500 mg/ Sodium (Chloride) 250 mls @ 250 mls/hr IVPB DAILY [facility] Last Admin: 07/25/17 11:28 Dose: 250 mls/hr Ceftriaxone Sodium 1 gm/ (Sodium Chloride) 100 mls @ 100 mls/hr IVPB DAILY [facility] Last Admin: 07/25/17 09:53 Dose: 100 mls/hr Vancomycin/Sodium Chloride (Vancomycin 1 Gm/Ns 200 Ml) 1 gm in 200 mls @ 166.6 mls/hr IVPB Q12H [facility] Stop: 07/30/17 12:31 Last Admin: 07/25/17 13:29 Dose: 166.6 mls/hr Multivitamins (Hexavitamin) 1 tab PO DAILY [facility] Thiamine HCl (Vitamin B1 Tab) 100 mg PO DAILY [facility] Last Admin: 07/25/17 09:46 Dose: 100 mg Physical Exam - Constitutional Appears: Non-toxic, Chronically Ill - Head Exam Head Exam: NORMOCEPHALIC - Eye Exam Eye Exam: PERRL. absent: Scleral icterus - ENT Exam ENT Exam: Mucous Membranes Dry - Neck Exam Neck exam: Negative for: Lymphadenopathy - Respiratory Exam Respiratory Exam: Decreased Breath Sounds, Rhonchi - Cardiovascular Exam Cardiovascular Exam: REGULAR RHYTHM, +S1, +S2 - GI/Abdominal Exam GI & Abdominal Exam: Diminished Bowel Sounds, Soft. absent: Tenderness - Rectal Exam Rectal Exam: Deferred - Exam Exam: NORMAL INSPECTION - Extremities Exam Extremities exam: Positive for: pedal pulses present. Negative for: calf tenderness, pedal edema, tenderness - Back Exam Back exam: absent: CVA tenderness (L), CVA tenderness (R) - Neurological Exam Neurological exam: Alert, CN II-XII Intact, Oriented x3, Reflexes Normal - Psychiatric Exam Psychiatric exam: Depressed - Skin Skin Exam: Dry Results - Vital Signs Recent Vital Signs: Last Vital Signs Temp 98.3 F 07/25/17 16:00 Pulse 60 07/25/17 16:00 Resp 20 07/25/17 16:00 BP 134/83 07/25/17 16:00 Pulse Ox 97 07/25/17 16:00 - Labs Result Diagrams: 07/25/17 01:26 07/25/17 01:26 Labs: Laboratory Results - last 24 hr 07/25/17 07/25/17 07/25/17 01:26 01:26 01:26 WBC 10.2 RBC 4.56 Hgb 13.6 Hct 40.9 MCV 89.6 MCH 29.9 MCHC 33.4 RDW 14.1 Plt Count 179 MPV 9.3 Neut % (Auto) 71.2 Lymph % (Auto) 20.6 Williamson % (Auto) 7.1 Eos % (Auto) 0.5 Baso % (Auto) 0.6 Neut # (Auto) 7.3 H Lymph # (Auto) 2.1 Williamson # (Auto) 0.7 Eos # (Auto) 0.1 Baso # (Auto) 0.1 PT 11.2 INR 1.0 APTT 27 Sodium 137 Potassium 3.8 Chloride 97 L Carbon Dioxide 27 Anion Gap 17 BUN 12 Creatinine 0.7 L Est GFR ( Amer) > 60 Est GFR (Non-Af Amer) > 60 Random Glucose 97 Calcium 8.6 Total Bilirubin 0.6 AST 72 H ALT 50 Alkaline Phosphatase 93 Total Protein 8.0 Albumin 4.2 Globulin 3.8 Albumin/Globulin Ratio 1.1 Lipase 173 Urine Color Urine Clarity Urine pH Ur Specific [place] Urine Protein Urine Glucose (UA) Urine Ketones Urine Blood Urine Nitrate Urine Bilirubin Urine Urobilinogen Ur Leukocyte Esterase Urine WBC (Auto) Urine RBC (Auto) Urine Opiates Screen Urine Methadone Screen Ur Barbiturates Screen Ur Phencyclidine Scrn Ur Amphetamines Screen U Benzodiazepines Scrn U Oth Cocaine Metabols U Cannabinoids Screen Alcohol, Quantitative Ur L.pneumophila Ag Mycoplasma pneumon IgM 07/25/17 07/25/17 07/25/17 02:15 02:15 04:33 WBC RBC Hgb Hct MCV MCH MCHC RDW Plt Count MPV Neut % (Auto) Lymph % (Auto) Williamson % (Auto) Eos % (Auto) Baso % (Auto) Neut # (Auto) Lymph # (Auto) Williamson # (Auto) Eos # (Auto) Baso # (Auto) PT INR APTT Sodium Potassium Chloride Carbon Dioxide Anion Gap BUN Creatinine Est GFR ( Amer) Est GFR (Non-Af Amer) Random Glucose Calcium Total Bilirubin AST ALT Alkaline Phosphatase Total Protein Albumin Globulin Albumin/Globulin Ratio Lipase Urine Color Straw Urine Clarity Clear Urine pH 6.0 Ur Specific [place] 1.003 Urine Protein Negative Urine Glucose (UA) Normal Urine Ketones Negative Urine Blood Negative Urine Nitrate Negative Urine Bilirubin Negative Urine Urobilinogen Normal Ur Leukocyte Esterase Neg Urine WBC (Auto) < 1 Urine RBC (Auto) < 1 Urine Opiates Screen Positive H Urine Methadone Screen Negative Ur Barbiturates Screen Negative Ur Phencyclidine Scrn Negative Ur Amphetamines Screen Negative U Benzodiazepines Scrn Negative U Oth Cocaine Metabols Negative U Cannabinoids Screen Negative Alcohol, Quantitative 206 H Ur L.pneumophila Ag Mycoplasma pneumon IgM 07/25/17 08:41 WBC RBC Hgb Hct MCV MCH MCHC RDW Plt Count MPV Neut % (Auto) Lymph % (Auto) Williamson % (Auto) Eos % (Auto) Baso % (Auto) Neut # (Auto) Lymph # (Auto) Williamson # (Auto) Eos # (Auto) Baso # (Auto) PT INR APTT Sodium Potassium Chloride Carbon Dioxide Anion Gap BUN Creatinine Est GFR ( Amer) Est GFR (Non-Af Amer) Random Glucose Calcium Total Bilirubin AST ALT Alkaline Phosphatase Total Protein Albumin Globulin Albumin/Globulin Ratio Lipase Urine Color Urine Clarity Urine pH Ur Specific [place] Urine Protein Urine Glucose (UA) Urine Ketones Urine Blood Urine Nitrate Urine Bilirubin Urine Urobilinogen Ur Leukocyte Esterase Urine WBC (Auto) Urine RBC (Auto) Urine Opiates Screen Urine Methadone Screen Ur Barbiturates Screen Ur Phencyclidine Scrn Ur Amphetamines Screen U Benzodiazepines Scrn U Oth Cocaine Metabols U Cannabinoids Screen Alcohol, Quantitative Ur L.pneumophila Ag Negative Mycoplasma pneumon IgM Negative Assessment & Plan (1) Abdominal pain Status: Acute (2) Hemoptysis Status: Acute (3) Pneumonia Status: Acute (4) Polysubstance abuse Status: Acute (5) Alcohol abuse Status: Acute - Assessment and Plan (Free Text) Assessment: await cultures cont iv antibiotics consider echo and CT chest recc pulm eval
[2017-07-26] MEDS: Vancomycin 1 gm/NS 200 ml 1 GM/200 ML BAG IVPB SCH ×2 (00:30→13:25)
[2017-07-26] MEDS: Enoxaparin 40 mg Syringe SC SCH (09:56)
[2017-07-26] MEDS: Multiple Vitamins Tab PO SCH (09:56)
--- NOTE | 2017-07-26 10:00 | PCM.PSYCH ---
Initial Psychiatric Evaluation - Initial Psychiatric Evaluation Type of Admission: Voluntary Legal Status: Capacity Chief Complaint (in patient's own words): "I feel like crap" History of Present Illness and Precipitating Events: Patient is a 57 year old single Male admitted for abdominal pain, hemoptysis, pneumonia, and polysubstance abuse. The patient reports that he lives with his son, has 5 children two of which are minors, and is currently employed as a body artist. The patient reports that he is feeling like crap because of pneumonia, infection in my blood, and Im withdrawing from heroin and alcohol. He complains that he keeps vomiting and cannot eat so he feels like he cant get stronger. The pt reports last snorting heroin on Sunday. He reports that normally snorts 15-17 bags a day. He states that he started using 22 years ago after his mother . He also reports drinking either 2 shots of whiskey or 2 beers daily or the past 22 years in between snorting. The patient reports that he has been to AA, NA, Detox once at [facility] in [place] (15 years ago), Rehab once at [facility] for 18 months ([id number]), Methadone Maintenance in 2000 , Suboxone in 2011. Patient reports symptoms of nausea, vomiting, abdominal pain , chills, tremors. He denies ever having a seizure in the past. He denies any feelings of hopelessness or suicidal ideation. He denies any homicidal ideation and denies any auditory or visual hallucinations. Med Hx - denies Medications - denies Family Psych Hx - denies Family Substance Abuse - My brother used to but has been clean for 18 years.\\ Patient is alert, awake, and oriented. Patient appears disheveled and is sitting up in bed. Patient is cooperative and maintains eye contact during encounter. Patient is talkative and speaks in a clear voice with appropriate tone and responds to questions in a linear fashion. The patient has insight to his situation and remains concentrated and attentive during the encounter. Current Medications: Active Medications Generic Name Dose Route Start Last Admin Trade Name Freq PRN Reason Stop Dose Admin Albuterol/Ipratropium 3 ml 07/25/17 07:24 Duoneb 3 Mg/0.5 Mg (3 Ml) Ud INH RQ6 PRN Wheezing Chlordiazepoxide 25 mg 07/26/17 00:00 07/26/17 05:24 Librium PO 07/29/17 23:59 25 mg Q6 [facility] Administration Taper Chlordiazepoxide 25 mg 07/25/17 23:47 Librium PO Q4H PRN Alcohol Withdrawal Clonidine HCl 0.1 mg 07/25/17 23:48 Catapres PO Q8 PRN COWS Score More or Equal to 5 Enoxaparin Sodium 40 mg 07/25/17 10:00 07/26/17 09:56 Lovenox SC 40 mg DAILY [facility] Administration Famotidine 20 mg 07/25/17 10:00 07/26/17 09:57 Pepcid PO 20 mg BID [facility] Administration Folic Acid 1 mg 07/25/17 10:00 07/26/17 09:56 Folic Acid PO 1 mg DAILY [facility] Administration Azithromycin 500 mg/ Sodium 250 mls @ 250 mls/hr 07/25/17 10:00 07/25/17 11: 28 Chloride IVPB 250 mls/hr DAILY [facility] Administration Ceftriaxone Sodium 1 gm/ 100 mls @ 100 mls/hr 07/25/17 10:00 07/26/17 09:55 Sodium Chloride IVPB 100 mls/hr DAILY [facility] Administration Vancomycin/Sodium Chloride 1 gm in 200 mls @ 166.6 mls/hr 07/25/17 12:30 02/02 00:30 Vancomycin 1 Gm/Ns 200 Ml IVPB 07/30/17 12:31 166.6 mls/hr Q12H [facility] Administration Loperamide HCl 2 mg 07/25/17 23:48 Imodium PO Q8 PRN Diarrhea Multivitamins 1 tab 07/26/17 10:00 07/26/17 09:56 Hexavitamin PO 1 tab DAILY [facility] Administration Ondansetron HCl 4 mg 07/25/17 23:48 Zofran Tab PO Q8 PRN Nausea/Vomiting Promethazine HCl 25 mg 07/25/17 23:48 Phenergan Inj IM QID PRN Nausea/Vomiting, Unable PO Thiamine HCl 100 mg 07/25/17 10:00 07/26/17 09:56 Vitamin B1 Tab PO 100 mg DAILY [facility] Administration Past Psychiatric History - Past Psychiatric History Previous Treatment History: Inpatient Pertinent Medical Hx (Current Medical&Sleep Prob, Allergies): Allergies Allergy/AdvReac Type Severity Reaction Status Date / Time No Known Allergies Allergy Verified 07/25/17 00:25 No Known Home Med 07/25/17 Review of Systems - Constitutional Constitutional: Chills, Sweats, Weakness - Respiratory Respiratory: Cough, Hemoptysis - Gastrointestinal Gastrointestinal: Abdominal Pain, Cramping, Nausea, Vomiting - Neurological Neurological: Weakness - Psychiatric Psychiatric: Change in Appetite. absent: Auditory Hallucinations, Behavioral Changes, Confusion, Depression, Difficulty Concentrating, Hallucinations, Homicidal Ideation, Hopelessness, Suicidal Ideation, Visual Hallucinations Mental Status Examination - Personal Presentation Personal Presentation: Looks older than stated age - Affect Affect: Broad - Motor Activity Motor Activity: Calm - Reliability in Providing Information Reliability in Providing Information: Good - Speech Speech: Organized - Mood Mood: Anxious - Formal Thought Process Formal Thought Process: No Impairment - Obsessions/Compulsions Obsessions: None Compulsions: None - Cognitive Functions Orientation: Person, Place, Situation, Time Sensorium: Alert Attention/Concentration: Attentive Abstract Thinking: [place] Estimate of Intelligence: Average Judgement: Intact, as evidence by: Good judgement, Intact, as evidence by: Insight regarding need for hospitalization Memory: Recent intact, as evidence by: Ability to recall events of the day, Remote intact, as evidenced by: Abilit to recall sig. life events - Risk Risk: Seizure, Withdrawal - Strength & Assets Inventory Strength & Assets Inventory: Family support, Employment status, Employment history, Cooperative DSM 5 DX - DSM 5 DSM 5 Diagnosis: Opioid Use Disorder severe Opioid withdrawal Alcohol Use Disorder Alcohol withdrawal - Recommended/Plan of Treatment Treatment Recommendations and Plan of Treatment: Opioid Use Disorder severe Opioid withdrawal - Methadone Taper - Psychoeducation - Encourage healthy lifestyle choices - Refer to inpatient rehab /IOP after discharge Alcohol Use Disorder Alcohol withdrawal - Librium taper - Psychoeducation - Encourage healthy lifestyle choices - Refer to inpatient rehab /IOP after discharge Pt psychiatrically stable and cleared for discharge. - Smoking Cessation Smoking Cessation Initiated: No
[2017-07-26] MEDS: Azithromycin 500 MG in Sodium Chloride 0.9% 250 ML IVPB SCH (10:51)
--- NOTE | 2017-07-26 11:13 | CARD ---
APPROVED REPORT EXAM: Two-dimensional and M-mode echocardiogram with Doppler and color Doppler. Other Information Quality : [employer] : INDICATION HISTORY DRUG USE, POSITIVE BLOOD CULTUR M-Mode DIMENSIONS RVDd0.62 (2.1-3.2cm)Left Atrium (MM)4.03 (2.5-4.0cm) IVSd0.91 (0.7-1.1cm)Aortic Root3.64 (2.2-3.7cm) LVDd6.38 (4.0-5.6cm)Aortic Cusp Exc.1.98 (1.5-2.0cm) PWd1.01 (0.7-1.1cm)FS (%) 34 % LVDs4.23 (2.0-3.8cm)LVEF (%)61 (>50%) Mitral Valve MV E Dcvfwoau46.3cm/sMV A Bfhuivrq87.3cm/sE/A ratio0.7 TDI E/Lateral E'0.0E/Medial E'0.0 Tricuspid Valve TR Peak [id number]/sTR Peak Gr.[id number] LEFT VENTRICLE The Left Ventricle is moderately dilated. There is normal left ventricular wall thickness. The Ejection Fraction is 50-55%. There is normal LV segmental wall motion. Transmitral Doppler flow pattern is Grade I-abnormal relaxation pattern. RIGHT VENTRICLE The right ventricle is normal size. The right ventricular systolic function is normal. ATRIA The left atrium is mildly dilated. The right atrium size is normal. The interatrial septum is intact with no evidence for an atrial septal defect. AORTIC VALVE The aortic valve is normal in structure. There is trace aortic regurgitation. MITRAL VALVE The mitral valve is normal in structure. Mitral regurgitation is trace to mild. TRICUSPID VALVE The tricuspid valve is normal in structure. There is mild tricuspid regurgitation. Right ventricular systolic pressure is estimated at 25 mmHg. There is no pulmonary hypertension. PULMONIC VALVE The pulmonary valve is normal in structure. GREAT VESSELS The aortic root is normal in size. The IVC is normal in size and collapses >50% with inspiration. PERICARDIAL EFFUSION There is no pericardial effusion. <Conclusion> The Left Ventricle is moderately dilated. The Ejection Fraction is 50-55%. Transmitral Doppler flow pattern is Grade I-abnormal relaxation pattern. The left atrium is mildly dilated. There is trace aortic regurgitation. Mitral regurgitation is trace to mild.
--- NOTE | 2017-07-26 11:32 | CP.PCM.PN ---
Subjective - Date & Time of Evaluation Date of Evaluation: 07/26/17 Time of Evaluation: 08:00 - Subjective Subjective: PGY 2 medicine progress note for Dr. Puentes: Patient was seen and examined at bedside this morning. He stated he is coughing and had some mild shortness of breath. Admits admit to feeling hot. Sates he feels like he is going into withdrawal from heroin use. Patient denies chest pain/palpations. Appetite is minimal. Last BM 2 days ago. Objective - Vital Signs/Intake and Output Vital Signs (last 24 hours): Temp Pulse Resp BP Pulse Ox 98.7 F 50 L 20 154/86 H 98 07/26/17 07:36 07/26/17 07:36 07/26/17 07:36 07/26/17 07:36 07/26/17 07:36 Intake and Output: 07/26/17 07/26/17 06:59 18:59 Intake Total 440 Output Total 1100 Balance -660 - Medications Medications: Current Medications Albuterol/Ipratropium (Duoneb 3 Mg/0.5 Mg (3 Ml) Ud) 3 ml INH RQ6 PRN PRN Reason: Wheezing Chlordiazepoxide (Librium) 25 mg PO Q6 KRISTAL PRN Reason: Taper Stop: 07/29/17 23:59 Last Admin: 07/26/17 05:24 Dose: 25 mg Chlordiazepoxide (Librium) 25 mg PO Q4H PRN PRN Reason: Alcohol Withdrawal Clonidine HCl (Catapres) 0.1 mg PO Q8 PRN PRN Reason: COWS Score More or Equal to 5 Enoxaparin Sodium (Lovenox) 40 mg SC DAILY [facility] Last Admin: 07/26/17 09:56 Dose: 40 mg Famotidine (Pepcid) 20 mg PO BID [facility] Last Admin: 07/26/17 09:57 Dose: 20 mg Folic Acid (Folic Acid) 1 mg PO DAILY [facility] Last Admin: 07/26/17 09:56 Dose: 1 mg Azithromycin 500 mg/ Sodium (Chloride) 250 mls @ 250 mls/hr IVPB DAILY [facility] Last Admin: 07/26/17 10:51 Dose: 250 mls/hr Ceftriaxone Sodium 1 gm/ (Sodium Chloride) 100 mls @ 100 mls/hr IVPB DAILY [facility] Last Admin: 07/26/17 09:55 Dose: 100 mls/hr Vancomycin/Sodium Chloride (Vancomycin 1 Gm/Ns 200 Ml) 1 gm in 200 mls @ 166.6 mls/hr IVPB Q12H [facility] Stop: 07/30/17 12:31 Last Admin: 07/26/17 00:30 Dose: 166.6 mls/hr Loperamide HCl (Imodium) 2 mg PO Q8 PRN PRN Reason: Diarrhea Multivitamins (Hexavitamin) 1 tab PO DAILY [facility] Last Admin: 07/26/17 09:56 Dose: 1 tab Ondansetron HCl (Zofran Tab) 4 mg PO Q8 PRN PRN Reason: Nausea/Vomiting Promethazine HCl (Phenergan Inj) 25 mg IM QID PRN PRN Reason: Nausea/Vomiting, Unable PO Thiamine HCl (Vitamin B1 Tab) 100 mg PO DAILY [facility] Last Admin: 07/26/17 09:56 Dose: 100 mg - Labs Labs: 07/25/17 01:26 07/25/17 01:26 PT 11.2 SECONDS (9.7-12.2) 07/25/17 01:26 INR 1.0 07/25/17 01:26 APTT 27 SECONDS (21-34) 07/25/17 01:26 - Constitutional Appears: Non-toxic, No Acute Distress - Head Exam Head Exam: ATRAUMATIC, NORMAL INSPECTION - Eye Exam Eye Exam: EOMI Pupil Exam: NORMAL ACCOMODATION - Respiratory Exam Respiratory Exam: Decreased Breath Sounds, Rales, NORMAL BREATHING PATTERN. absent: Accessory Muscle Use, Wheezes, Respiratory Distress - Cardiovascular Exam Cardiovascular Exam: REGULAR RHYTHM - GI/Abdominal Exam GI & Abdominal Exam: Soft, Tenderness. absent: Distended, Firm, Guarding, Normal Bowel Sounds - Extremities Exam Extremities Exam: Normal Inspection. absent: Calf Tenderness - Back Exam Back Exam: NORMAL INSPECTION. absent: CVA tenderness (L), CVA tenderness (R), paraspinal tenderness - Neurological Exam Neurological Exam: Alert, Awake, CN II-XII Intact, Normal Gait, Oriented x3 Neuro motor strength exam: Left Upper Extremity: 4, Right Upper Extremity: 4, Left Lower Extremity: 4, Right Lower Extremity: 4 - Psychiatric Exam Psychiatric exam: Depressed, Normal Affect, Normal Mood - Skin Skin Exam: Dry, Intact, Normal Color, Warm Assessment and Plan - Assessment and Plan (Free Text) Assessment: Pneumonia f/u sputum culture Urine legionella and mycoplasma negative influenza negative f/u Quantiferon CT Chest 07/25 - finding highly suspicious for a multifocal bilateral groundglass pneumonia greatest in the upper lobe and lingula. small amount of mucus plugging or aspirated debris in the trachea and right mainstem brochus Ceftriaxone 1gram IVPB daily (started 07/25) Azithromycin 500mg IVPB daily (started 07/25) Duonebs prn f/u am labs on contact isolation Bacteremia Echo - negative for vegetation Blood cultures 07/23: prelim: gram positive cocci ID consulted, Dr. Vergara - help appreciated Vancomycin 1gram Q12 hours started 07/25 f/u Vanc trough Sunday Congestive Heart failure diastolic dysfunction new diagnosis Echo: LV is moderately dilated, EF 50-55%, Grade 1 abnormal relaxation pattern. LA is mildly dilated. trace aortic regurg. mitral regrug is trace to mild will avoid bblock for now due to hx drug/cocaine abuse. Will talk to patient about the dangers of taking beta block with cocain/drug use Will add Losartan 25mg PO daily f/u lipid panel Alcohol Use disorder Monitor for signs of withdrawal Alchol level on admission 206 folic acid/mv/thiamine dialy seizure/aspiration precautions Per psychiatry: - Librium - Psychoeducation - Encourage healthy lifestyle choices - Refer to inpatient rehab Polysubstance use disorder monitor for signs of withdrawal f/u Psych recommendations - Dr. Franco: - Methadone Taper - Psychoeducation - Encourage healthy lifestyle choices - Refer to inpatient rehab Prophylactic measures Lovenox 40mg SC daily Pepcid 20mg PO BID Regular diet
[2017-07-26 11:47] LABS: BASO % 0.5 % (0.0-2.0); EOS % 0.8 % (0.0-4.0); HEMOGLOBIN 13.4 g/dL (12.0-18.0); LYMPH # 1.1 K/uL (1.0-4.3); LYMPH % 17.7 % (20.0-40.0); MEAN CORPUSCULAR HEMOGLOBIN 29.7 pg (27.0-31.0); MEAN CORPUSCULAR HGB CONC 33.4 g/dL (33.0-37.0); MEAN PLATELET VOLUME 9.4 fL (7.2-11.7); MONO # 0.6 K/uL (0.0-0.8); MONO % 9.9 % (0.0-10.0); NEUT # 4.3 K/uL (1.8-7.0); NEUT % 71.1 % (50.0-75.0); NRBC % 0.1 % (0.0-2.0); RBC 4.52 Mil/uL (4.40-5.90); RED CELL DISTRIBUTION WIDTH 13.7 % (11.5-14.5)
[2017-07-26 11:58] LABS: ALB/GLOB RATIO 1.1 (1.0-2.1); ALBUMIN 3.6 g/dL (3.5-5.0); ALT/SGPT 42 U/L (21-72); AST/SGOT 36 U/L (17-59); BLOOD UREA NITROGEN 10 mg/dL (9-20); GFR AFRICAN-AMERICAN > 60; GFR NON-AFRICAN AMERICAN > 60; MAGNESIUM 1.9 mg/dL (1.6-2.3)
[2017-07-26 12:23] LABS: HEPATITIS B SURFACE AG Negative (NEGATIVE)
[2017-07-26 12:31] LABS: HEPATITIS A IGM NEGATIVE (NEGATIVE); HEPATITIS B CORE AB NEGATIVE (NEGATIVE)
[2017-07-26 14:56] LABS: HEPATITIS C ANTIBODY REACTIVE (NEGATIVE)
--- NOTE | 2017-07-26 17:00 | CP.PCM.PN ---
Subjective - Date & Time of Evaluation Date of Evaluation: 07/26/17 Time of Evaluation: 09:00 - Subjective Subjective: less cough still weak iv rx in progress Objective - Vital Signs/Intake and Output Vital Signs (last 24 hours): Temp Pulse Resp BP Pulse Ox 98 F 67 20 123/83 95 07/26/17 16:24 07/26/17 16:24 07/26/17 16:24 07/26/17 16:24 07/26/17 16:24 Intake and Output: 07/26/17 07/26/17 06:59 18:59 Intake Total 440 580 Output Total 1100 Balance -660 580 - Medications Medications: Current Medications Albuterol/Ipratropium (Duoneb 3 Mg/0.5 Mg (3 Ml) Ud) 3 ml INH RQ6 PRN PRN Reason: Wheezing Chlordiazepoxide (Librium) 25 mg PO Q6 KRISTAL PRN Reason: Taper Stop: 07/29/17 23:59 Last Admin: 07/26/17 11:52 Dose: 25 mg Chlordiazepoxide (Librium) 25 mg PO Q4H PRN PRN Reason: Alcohol Withdrawal Clonidine HCl (Catapres) 0.1 mg PO Q8 PRN PRN Reason: COWS Score More or Equal to 5 Enoxaparin Sodium (Lovenox) 40 mg SC DAILY [facility] BEDS AT [facility] Last Admin: 07/26/17 09:56 Dose: 40 mg Famotidine (Pepcid) 20 mg PO BID COUNTS [facility]CLUDE 234 BEDS AT [facility] Last Admin: 07/26/17 09:57 Dose: 20 mg Folic Acid (Folic Acid) 1 mg PO DAILY [facility]S [facility]CLUDE 234 BEDS AT [facility] Last Admin: 07/26/17 09:56 Dose: 1 mg Azithromycin 500 mg/ Sodium (Chloride) 250 mls @ 250 mls/hr IVPB DAILY [facility]S [facility]CLUDE 234 BEDS AT [facility] Last Admin: 07/26/17 10:51 Dose: 250 mls/hr Ceftriaxone Sodium 1 gm/ (Sodium Chloride) 100 mls @ 100 mls/hr IVPB DAILY [facility]S [facility]CLUDE 234 BEDS AT [facility] Last Admin: 07/26/17 09:55 Dose: 100 mls/hr Vancomycin/Sodium Chloride (Vancomycin 1 Gm/Ns 200 Ml) 1 gm in 200 mls @ 166.6 mls/hr IVPB Q12H COUNTS [facility]CLUDE 234 BEDS AT [facility] Stop: 07/30/17 12:31 Last Admin: 07/26/17 13:25 Dose: 166.6 mls/hr Loperamide HCl (Imodium) 2 mg PO Q8 PRN PRN Reason: Diarrhea Losartan Potassium (Cozaar) 25 mg PO DAILY COUNTS [facility]CLUDE 234 BEDS AT [facility] Multivitamins (Hexavitamin) 1 tab PO DAILY [facility]S [facility]CLUDE 234 BEDS AT [facility] Last Admin: 07/26/17 09:56 Dose: 1 tab Ondansetron HCl (Zofran Tab) 4 mg PO Q8 PRN PRN Reason: Nausea/Vomiting Promethazine HCl (Phenergan Inj) 25 mg IM QID PRN PRN Reason: Nausea/Vomiting, Unable PO Thiamine HCl (Vitamin B1 Tab) 100 mg PO DAILY [facility]S [facility]CLUDE 234 BEDS AT [facility] Last Admin: 07/26/17 09:56 Dose: 100 mg - Labs Labs: 07/26/17 11:30 07/26/17 11:30 PT 11.2 SECONDS (9.7-12.2) 07/25/17 01:26 INR 1.0 07/25/17 01:26 APTT 27 SECONDS (21-34) 07/25/17 01:26 - Constitutional Appears: Non-toxic, Chronically Ill - Head Exam Head Exam: NORMOCEPHALIC - Eye Exam Eye Exam: PERRL - ENT Exam ENT Exam: Mucous Membranes Dry - Neck Exam Neck Exam: absent: Lymphadenopathy - Respiratory Exam Respiratory Exam: Decreased Breath Sounds, Rhonchi - Cardiovascular Exam Cardiovascular Exam: REGULAR RHYTHM - GI/Abdominal Exam GI & Abdominal Exam: Distended, Soft - Rectal Exam Rectal Exam: Deferred - Exam Exam: NORMAL INSPECTION Assessment and Plan (1) Abdominal pain Status: Acute (2) Hemoptysis Status: Acute (3) Pneumonia Status: Acute (4) Polysubstance abuse Status: Acute (5) Alcohol abuse Status: Acute - Assessment and Plan (Free Text) Assessment: await cultures cont iv rx
[2017-07-27] MEDS: Vancomycin 1 gm/NS 200 ml 1 GM/200 ML BAG IVPB SCH ×3 (00:37→23:59)
[2017-07-27 08:15] LABS: BASO % 0.6 % (0.0-2.0); EOS # 0.1 K/uL (0.0-0.7); EOS % 2.2 % (0.0-4.0); HEMOGLOBIN 13.4 g/dL (12.0-18.0); LYMPH # 1.2 K/uL (1.0-4.3); LYMPH % 26.6 % (20.0-40.0); MEAN CELL VOLUME 89.6 fL (80.0-94.0); MEAN CORPUSCULAR HEMOGLOBIN 29.8 pg (27.0-31.0); MEAN CORPUSCULAR HGB CONC 33.2 g/dL (33.0-37.0); MEAN PLATELET VOLUME 9.2 fL (7.2-11.7); MONO # 0.5 K/uL (0.0-0.8); MONO % 11.8 % (0.0-10.0); NEUT # 2.7 K/uL (1.8-7.0); NEUT % 58.8 % (50.0-75.0); NRBC % 0.3 % (0.0-2.0); RBC 4.5 Mil/uL (4.40-5.90); RED CELL DISTRIBUTION WIDTH 13.8 % (11.5-14.5); WHITE BLOOD COUNT 4.6 K/uL (4.8-10.8)
[2017-07-27 08:20] LABS: ALBUMIN 3.5 g/dL (3.5-5.0); ALT/SGPT 39 U/L (21-72); AST/SGOT 40 U/L (17-59); BLOOD UREA NITROGEN 10 mg/dL (9-20); CALCIUM 8.8 mg/dl (8.6-10.4); GFR AFRICAN-AMERICAN > 60; GFR NON-AFRICAN AMERICAN > 60; HDL CHOLESTEROL 79 mg/dL (30-70); MAGNESIUM 1.8 mg/dL (1.6-2.3)
[2017-07-27 08:31] LABS: LDL CHOLESTEROL 76 mg/dL (0-129)
[2017-07-27] MEDS: Enoxaparin 40 mg Syringe SC SCH (09:08)
[2017-07-27] MEDS: Multiple Vitamins Tab PO SCH (09:09)
--- NOTE | 2017-07-27 10:03 | CP.PCM.PN ---
Subjective - Date & Time of Evaluation Date of Evaluation: 07/28/17 Time of Evaluation: 11:12 - Subjective Subjective: PGY 2 Medicine Note- Dr. Puentes's service Patient seen and examined in no apparent acute distress. Patient reports having trouble eating certain foods due to dental oral pain. Patient requested food to be softer if possible. Patient states that he feels better today as compared to the day before. He denies chest pain, headaches, palpitations, nausea, vomiting , or diarrhea at this time. Objective - Vital Signs/Intake and Output Vital Signs (last 24 hours): Temp Pulse Resp BP Pulse Ox 98.3 F 98 H 20 135/83 96 07/27/17 07:25 07/27/17 07:25 07/27/17 07:25 07/27/17 07:25 07/27/17 07:25 - Medications Medications: Current Medications Albuterol/Ipratropium (Duoneb 3 Mg/0.5 Mg (3 Ml) Ud) 3 ml INH RQ6 PRN PRN Reason: Wheezing Chlordiazepoxide (Librium) 25 mg PO TID [facility] PRN Reason: Taper Stop: 07/29/17 23:59 Last Admin: 07/27/17 09:08 Dose: 25 mg Chlordiazepoxide (Librium) 25 mg PO Q4H PRN PRN Reason: Alcohol Withdrawal Last Admin: 07/27/17 00:37 Dose: 25 mg Clonidine HCl (Catapres) 0.1 mg PO Q8 PRN PRN Reason: COWS Score More or Equal to 5 Enoxaparin Sodium (Lovenox) 40 mg SC DAILY [facility] Last Admin: 07/27/17 09:08 Dose: 40 mg Famotidine (Pepcid) 20 mg PO BID [facility] Last Admin: 07/27/17 09:08 Dose: 20 mg Folic Acid (Folic Acid) 1 mg PO DAILY [facility] Last Admin: 07/27/17 09:09 Dose: 1 mg Azithromycin 500 mg/ Sodium (Chloride) 250 mls @ 250 mls/hr IVPB DAILY [facility] Last Admin: 07/26/17 10:51 Dose: 250 mls/hr Ceftriaxone Sodium 1 gm/ (Sodium Chloride) 100 mls @ 100 mls/hr IVPB DAILY [facility] Last Admin: 07/27/17 09:23 Dose: 100 mls/hr Vancomycin/Sodium Chloride (Vancomycin 1 Gm/Ns 200 Ml) 1 gm in 200 mls @ 166.6 mls/hr IVPB Q12H [facility] Stop: 07/30/17 12:31 Last Admin: 07/27/17 00:37 Dose: 166.6 mls/hr Loperamide HCl (Imodium) 2 mg PO Q8 PRN PRN Reason: Diarrhea Losartan Potassium (Cozaar) 25 mg PO DAILY [facility] Last Admin: 07/27/17 09:09 Dose: 25 mg Methadone HCl (Methadone) 15 mg PO DAILY [facility] PRN Reason: Taper Stop: 07/31/17 09:59 Last Admin: 07/27/17 09:09 Dose: 15 mg Multivitamins (Hexavitamin) 1 tab PO DAILY [facility] Last Admin: 07/27/17 09:09 Dose: 1 tab Ondansetron HCl (Zofran Tab) 4 mg PO Q8 PRN PRN Reason: Nausea/Vomiting Promethazine HCl (Phenergan Inj) 25 mg IM QID PRN PRN Reason: Nausea/Vomiting, Unable PO Thiamine HCl (Vitamin B1 Tab) 100 mg PO DAILY [facility] Last Admin: 07/27/17 09:08 Dose: 100 mg - Labs Labs: 07/27/17 07:42 07/27/17 07:42 PT 11.2 SECONDS (9.7-12.2) 07/25/17 01:26 INR 1.0 07/25/17 01:26 APTT 27 SECONDS (21-34) 07/25/17 01:26 - Constitutional Appears: Non-toxic - Head Exam Head Exam: NORMAL INSPECTION - Eye Exam Eye Exam: EOMI, Normal appearance Pupil Exam: NORMAL ACCOMODATION, PERRL - ENT Exam ENT Exam: Mucous Membranes Moist - Neck Exam Neck Exam: Full ROM - Respiratory Exam Respiratory Exam: NORMAL BREATHING PATTERN - GI/Abdominal Exam GI & Abdominal Exam: Soft, Normal Bowel Sounds - Extremities Exam Extremities Exam: Full ROM - Neurological Exam Neurological Exam: Alert, Awake, Oriented x3 - Psychiatric Exam Psychiatric exam: Normal Affect, Normal Mood - Skin Skin Exam: Intact, Normal Color Assessment and Plan - Assessment and Plan (Free Text) Assessment: Pneumonia Sputum culture- normal adali Urine legionella and mycoplasma negative influenza negative f/u Quantiferon CT Chest 07/25 - finding highly suspicious for a multifocal bilateral groundglass pneumonia greatest in the upper lobe and lingula. small amount of mucus plugging or aspirated debris in the trachea and right mainstem brochus Ceftriaxone 1gram IVPB daily (started 07/25) Azithromycin 500mg IVPB daily (started 07/25) Duonebs prn f/u am labs on contact isolation Bacteremia Echo - negative for vegetation Blood cultures 07/23: prelim: gram positive cocci ID consulted, Dr. Vergara - help appreciated Vancomycin 1gram Q12 hours started 07/25 On Florastor Vanc trough 5.6 F/U next trough 07/28 at 21:00 Congestive Heart failure diastolic dysfunction new diagnosis Echo: LV is moderately dilated, EF 50-55%, Grade 1 abnormal relaxation pattern. LA is mildly dilated. trace aortic regurg. mitral regrug is trace to mild will avoid bblock for now due to hx drug/cocaine abuse. Will talk to patient about the dangers of taking beta block with cocaine/drug use Losartan 25mg PO daily Lipid panel within normal limits Alcohol Use disorder Monitor for signs of withdrawal Alcohol level on admission 206 folic acid/mv/thiamine dialy seizure/aspiration precautions Per psychiatry: - Librium - Psychoeducation - Encourage healthy lifestyle choices - Refer to inpatient rehab Polysubstance use disorder monitor for signs of withdrawal f/u Psych recommendations - Dr. Franco: - Methadone Taper - Psychoeducation - Encourage healthy lifestyle choices - Refer to inpatient rehab Prophylactic measures Lovenox 40mg SC daily Pepcid 20mg PO BID Regular diet Discussed with attending; all management and planning per Dr. Puentes.
[2017-07-27] MEDS: Azithromycin 500 MG in Sodium Chloride 0.9% 250 ML IVPB SCH (10:34)
--- NOTE | 2017-07-27 16:03 | PCM.PYCHPN ---
Psychiatric Progress Note - Psychiatric Progress Note Patient seen today, length of contact: 15 min Patient Chief Complaint: "I m feeling better" Problems Identified/Issues Discussed: Patient seen and evaluated, chart reviewed and discussed with the nurse. Patient reports improvement in his mood and reports improvement in the anxiety symptoms. Patient reports withdrawal symptoms including nausea, headaches, cramps and sweating. He denies any auditory or visual hallucinations. He remained calm and cooperative. He denies any feelings of hopelessness and helplessness. He is taking medication and denies any side effects. He needs more time for stabilization. Supportive therapy and psychoeducation were given. Medication Change: No Medical Record Reviewed: Yes Mental Status Examination - Cognitive Function Orientation: Person, Place, Situation, Time Memory: Intact Attention: WNL Concentration: Poor Association: WNL Fund of Knowledge: Poor - Mood Mood: Anxious - Affect Affect: Broad - Speech Speech: Soft - Formal Thought Process Formal Thought Process: No Impairment - Suicidal Ideation Suicidal Ideation: No - Homicidal Ideation Homicidal Ideation: No Goal/Treatment Plan - Goal/Treatment Plan Need for Continued Stay: Other Progress Toward Problem(s) and Goals/Treatment Plan: Opioid Use Disorder severe Opioid withdrawal - Methadone Taper - Psychoeducation - Encourage healthy lifestyle choices - Refer to inpatient rehab /IOP after discharge Alcohol Use Disorder Alcohol withdrawal - Librium taper - Psychoeducation - Encourage healthy lifestyle choices - Refer to inpatient rehab /IOP after discharge Pt psychiatrically stable and cleared for discharge.
[2017-07-28 00:51] LABS: TB ANTIGEN MINUS NIL 8.36 IU/mL
[2017-07-28] MEDS ORDERED: Benzocaine 7.5% 5.1 GM TUBE MM PRN (06:00)
[2017-07-28 08:30] LABS: BASO % 0.7 % (0.0-2.0); EOS # 0.2 K/uL (0.0-0.7); EOS % 3.4 % (0.0-4.0); HEMOGLOBIN 13.5 g/dL (12.0-18.0); LYMPH # 1.4 K/uL (1.0-4.3); LYMPH % 28.9 % (20.0-40.0); MEAN CELL VOLUME 88.4 fL (80.0-94.0); MEAN PLATELET VOLUME 8.6 fL (7.2-11.7); MONO # 0.6 K/uL (0.0-0.8); MONO % 13.4 % (0.0-10.0); NEUT # 2.6 K/uL (1.8-7.0); NEUT % 53.6 % (50.0-75.0); NRBC % 0.1 % (0.0-2.0); RBC 4.5 Mil/uL (4.40-5.90); RED CELL DISTRIBUTION WIDTH 13.9 % (11.5-14.5); WHITE BLOOD COUNT 4.8 K/uL (4.8-10.8)
[2017-07-28 08:33] LABS: ALBUMIN 3.6 g/dL (3.5-5.0); ALT/SGPT 36 U/L (21-72); AST/SGOT 33 U/L (17-59); BLOOD UREA NITROGEN 8 mg/dL (9-20); GFR AFRICAN-AMERICAN > 60; GFR NON-AFRICAN AMERICAN > 60
[2017-07-28] MEDS: Saccharomyces Boulardi 250 mg Cap PO SCH ×2 (09:09→17:39)
[2017-07-28] MEDS: Enoxaparin 40 mg Syringe SC SCH (09:09)
[2017-07-28] MEDS: Multiple Vitamins Tab PO SCH (09:11)
[2017-07-28] MEDS ORDERED: Potassium Chloride 20 mEq ER Tab PO ONE (10:15)
[2017-07-28] MEDS: Azithromycin 500 MG in Sodium Chloride 0.9% 250 ML IVPB SCH (10:33)
[2017-07-28] MEDS: Vancomycin 1 gm/NS 200 ml 1 GM/200 ML BAG IVPB SCH (12:06)
--- NOTE | 2017-07-28 12:25 | CARD ---
APPROVED REPORT EKG Measurement Heart [id number] <Conclusion> Normal sinus rhythm Normal ECG
[2017-07-29] MEDS: Vancomycin 1 gm/NS 200 ml 1 GM/200 ML BAG IVPB SCH ×2 (00:45→12:13)
[2017-07-29 07:17] LABS: BASO % 0.5 % (0.0-2.0); EOS # 0.2 K/uL (0.0-0.7); EOS % 2.9 % (0.0-4.0); HEMOGLOBIN 12.8 g/dL (12.0-18.0); LYMPH # 1.8 K/uL (1.0-4.3); LYMPH % 30.3 % (20.0-40.0); MEAN CELL VOLUME 89.9 fL (80.0-94.0); MEAN CORPUSCULAR HEMOGLOBIN 29.4 pg (27.0-31.0); MEAN CORPUSCULAR HGB CONC 32.7 g/dL (33.0-37.0); MEAN PLATELET VOLUME 8.9 fL (7.2-11.7); MONO # 0.7 K/uL (0.0-0.8); MONO % 12.1 % (0.0-10.0); NEUT # 3.2 K/uL (1.8-7.0); NEUT % 54.2 % (50.0-75.0); RBC 4.37 Mil/uL (4.40-5.90); RED CELL DISTRIBUTION WIDTH 14.1 % (11.5-14.5); WHITE BLOOD COUNT 5.9 K/uL (4.8-10.8)
[2017-07-29 07:51] LABS: ALB/GLOB RATIO 1.1 (1.0-2.1); ALBUMIN 3.6 g/dL (3.5-5.0); ALT/SGPT 35 U/L (21-72); AST/SGOT 38 U/L (17-59); BLOOD UREA NITROGEN 9 mg/dL (9-20); CALCIUM 9.1 mg/dl (8.6-10.4); GFR AFRICAN-AMERICAN > 60; GFR NON-AFRICAN AMERICAN 57
[2017-07-29] MEDS: Enoxaparin 40 mg Syringe SC SCH (09:20)
[2017-07-29] MEDS: Saccharomyces Boulardi 250 mg Cap PO SCH ×2 (09:21→17:43)
[2017-07-29] MEDS: Multiple Vitamins Tab PO SCH (09:22)
[2017-07-29] MEDS: Azithromycin 500 MG in Sodium Chloride 0.9% 250 ML IVPB SCH (10:34)
--- NOTE | 2017-07-29 15:32 | CP.PCM.PN ---
Subjective - Date & Time of Evaluation Date of Evaluation: 07/29/17 Time of Evaluation: 09:00 - Subjective Subjective: NO FEVER LESS COUGH [employer] SMEARS PENDING IV RX IN PROGRESS Objective - Vital Signs/Intake and Output Vital Signs (last 24 hours): Temp Pulse Resp BP Pulse Ox 98.0 F 62 20 97/61 L 99 07/29/17 07:25 07/29/17 07:25 07/29/17 07:25 07/29/17 07:25 07/29/17 07:25 Intake and Output: 07/29/17 07/29/17 06:59 18:59 Intake Total 300 200 Balance 300 200 - Medications Medications: Current Medications Albuterol/Ipratropium (Duoneb 3 Mg/0.5 Mg (3 Ml) Ud) 3 ml INH RQ6 PRN PRN Reason: Wheezing Last Admin: 07/29/17 14:18 Dose: 3 ml Benzocaine (Orajel 7.5%) 0 gm MM Q6H PRN PRN Reason: Other Chlordiazepoxide (Librium) 25 mg PO DAILY [facility] PRN Reason: Taper Stop: 07/29/17 23:59 Last Admin: 07/29/17 09:22 Dose: 25 mg Chlordiazepoxide (Librium) 25 mg PO Q4H PRN PRN Reason: Alcohol Withdrawal Last Admin: 07/29/17 00:45 Dose: 25 mg Clonidine HCl (Catapres) 0.1 mg PO Q8 PRN PRN Reason: COWS Score More or Equal to 5 Last Admin: 07/28/17 16:55 Dose: 0.1 mg Enoxaparin Sodium (Lovenox) 40 mg SC DAILY [facility] Last Admin: 07/29/17 09:20 Dose: 40 mg Famotidine (Pepcid) 20 mg PO BID [facility] Last Admin: 07/29/17 09:22 Dose: 20 mg Folic Acid (Folic Acid) 1 mg PO DAILY [facility] Last Admin: 07/29/17 09:22 Dose: 1 mg Azithromycin 500 mg/ Sodium (Chloride) 250 mls @ 250 mls/hr IVPB DAILY [facility] Last Admin: 07/29/17 10:34 Dose: 250 mls/hr Ceftriaxone Sodium 1 gm/ (Sodium Chloride) 100 mls @ 100 mls/hr IVPB DAILY [facility] Last Admin: 07/29/17 09:23 Dose: 100 mls/hr Vancomycin/Sodium Chloride (Vancomycin 1 Gm/Ns 200 Ml) 1 gm in 200 mls @ 166.6 mls/hr IVPB Q12H [facility] Stop: 07/30/17 12:31 Last Admin: 07/29/17 12:13 Dose: 166.6 mls/hr Loperamide HCl (Imodium) 2 mg PO Q8 PRN PRN Reason: Diarrhea Losartan Potassium (Cozaar) 25 mg PO DAILY [facility] Last Admin: 07/29/17 09:23 Dose: Not Given Methadone HCl (Methadone) 5 mg PO DAILY [facility] PRN Reason: Taper Stop: 07/31/17 09:59 Last Admin: 07/29/17 09:21 Dose: 5 mg Multivitamins (Hexavitamin) 1 tab PO DAILY [facility] Last Admin: 07/29/17 09:22 Dose: 1 tab Ondansetron HCl (Zofran Tab) 4 mg PO Q8 PRN PRN Reason: Nausea/Vomiting Promethazine HCl (Phenergan Inj) 25 mg IM QID PRN PRN Reason: Nausea/Vomiting, Unable PO Saccharomyces Boulardii (Florastor) 250 mg PO BID [facility] Last Admin: 07/29/17 09:21 Dose: 250 mg Thiamine HCl (Vitamin B1 Tab) 100 mg PO DAILY [facility] Last Admin: 07/29/17 09:21 Dose: 100 mg - Labs Labs: 07/29/17 07:05 07/29/17 07:05 PT 11.2 SECONDS (9.7-12.2) 07/25/17 01:26 INR 1.0 07/25/17 01:26 APTT 27 SECONDS (21-34) 07/25/17 01:26 - Constitutional Appears: Non-toxic, Chronically Ill - Head Exam Head Exam: NORMOCEPHALIC - Eye Exam Eye Exam: PERRL - ENT Exam ENT Exam: Mucous Membranes Dry - Neck Exam Neck Exam: absent: Lymphadenopathy - Respiratory Exam Respiratory Exam: Decreased Breath Sounds - Cardiovascular Exam Cardiovascular Exam: REGULAR RHYTHM - GI/Abdominal Exam GI & Abdominal Exam: Distended - Rectal Exam Rectal Exam: Deferred - Exam Exam: NORMAL INSPECTION - Extremities Exam Extremities Exam: absent: Pedal Edema - Back Exam Back Exam: NORMAL INSPECTION. absent: CVA tenderness (L), CVA tenderness (R) - Neurological Exam Neurological Exam: Alert, Awake, Oriented x3 Assessment and Plan (1) Abdominal pain Status: Acute (2) Hemoptysis Status: Acute (3) Pneumonia Status: Acute (4) Polysubstance abuse Status: Acute (5) Alcohol abuse Status: Acute
[2017-07-29] MEDS: Vitamins A & D Oint UD Foilpak TOP SCH (22:11)
[2017-07-30] MEDS: Vancomycin 1 gm/NS 200 ml 1 GM/200 ML BAG IVPB SCH ×2 (00:18→12:51)
[2017-07-30 07:45] LABS: BASO # 0.1 K/uL (0.0-0.2); BASO % 1.1 % (0.0-2.0); EOS # 0.2 K/uL (0.0-0.7); EOS % 2.6 % (0.0-4.0); HEMOGLOBIN 12.2 g/dL (12.0-18.0); LYMPH # 1.7 K/uL (1.0-4.3); LYMPH % 29.1 % (20.0-40.0); MEAN CELL VOLUME 90.4 fL (80.0-94.0); MEAN CORPUSCULAR HEMOGLOBIN 29.5 pg (27.0-31.0); MEAN CORPUSCULAR HGB CONC 32.7 g/dL (33.0-37.0); MEAN PLATELET VOLUME 8.5 fL (7.2-11.7); MONO # 1.2 K/uL (0.0-0.8); MONO % 19.4 % (0.0-10.0); NEUT # 2.8 K/uL (1.8-7.0); NEUT % 47.8 % (50.0-75.0); NRBC % 0.1 % (0.0-2.0); RBC 4.13 Mil/uL (4.40-5.90); RED CELL DISTRIBUTION WIDTH 14.2 % (11.5-14.5); WHITE BLOOD COUNT 5.9 K/uL (4.8-10.8)
[2017-07-30 08:29] LABS: ALB/GLOB RATIO 1.1 (1.0-2.1); ALBUMIN 3.6 g/dL (3.5-5.0)
[2017-07-30] MEDS: Enoxaparin 40 mg Syringe SC SCH (09:55)
[2017-07-30] MEDS: Multiple Vitamins Tab PO SCH (09:56)
[2017-07-30] MEDS: Vitamins A & D Oint UD Foilpak TOP SCH ×2 (09:56→17:00)
[2017-07-30] MEDS: Saccharomyces Boulardi 250 mg Cap PO SCH ×2 (09:56→17:00)
[2017-07-30] MEDS: Azithromycin 500 MG in Sodium Chloride 0.9% 250 ML IVPB SCH (10:00)
--- NOTE | 2017-07-30 10:42 | CP.PCM.PN ---
Subjective - Date & Time of Evaluation Date of Evaluation: 07/30/17 Time of Evaluation: 07:10 - Subjective Subjective: PGY 2 Medicine Note- Dr. Puentes's service Patient seen and examined at bedside. No acute overnight events per nursing. Patient reports feeling well and is tolerating his diet. We discussed his current labwork. He denies chest pain, headaches, palpitations, nausea, vomiting , or diarrhea at this time. Objective - Vital Signs/Intake and Output Vital Signs (last 24 hours): Temp Pulse Resp BP Pulse Ox 98.3 F 69 20 96/62 L 95 07/30/17 07:43 07/30/17 07:43 07/30/17 07:43 07/30/17 07:43 07/30/17 07:43 Intake and Output: 07/30/17 07/30/17 06:59 18:59 Intake Total 1500 Balance 1500 - Medications Medications: Current Medications Benzocaine (Orajel 7.5%) 0 gm MM Q6H PRN PRN Reason: Other [facility] ([facility] Stop: 08/01/17 08:01 Chlordiazepoxide (Librium) 25 mg PO Q4H PRN PRN Reason: Alcohol Withdrawal Last Admin: 07/30/17 00:20 Dose: 25 mg Clonidine HCl (Catapres) 0.1 mg PO Q8 PRN PRN Reason: COWS Score More or Equal to 5 Last Admin: 07/28/17 16:55 Dose: 0.1 mg Enoxaparin Sodium (Lovenox) 40 mg SC DAILY [facility] Last Admin: 07/30/17 09:55 Dose: 40 mg Famotidine (Pepcid) 20 mg PO BID [facility] Last Admin: 07/30/17 09:56 Dose: 20 mg Folic Acid (Folic Acid) 1 mg PO DAILY [facility] Last Admin: 07/30/17 09:56 Dose: 1 mg Azithromycin 500 mg/ Sodium (Chloride) 250 mls @ 250 mls/hr IVPB DAILY [facility] Last Admin: 07/29/17 10:34 Dose: 250 mls/hr Ceftriaxone Sodium 1 gm/ (Sodium Chloride) 100 mls @ 100 mls/hr IVPB DAILY [facility] Last Admin: 07/30/17 09:57 Dose: 100 mls/hr Vancomycin/Sodium Chloride (Vancomycin 1 Gm/Ns 200 Ml) 1 gm in 200 mls @ 166.6 mls/hr IVPB Q12H [facility] Stop: 07/30/17 12:31 Last Admin: 07/30/17 00:18 Dose: 166.6 mls/hr Ibuprofen (Motrin Tab) 400 mg PO Q6H PRN PRN Reason: Pain, Mild (1-3) Last Admin: 07/29/17 22:11 Dose: 400 mg Loperamide HCl (Imodium) 2 mg PO Q8 PRN PRN Reason: Diarrhea Losartan Potassium (Cozaar) 25 mg PO DAILY [facility] Last Admin: 07/29/17 09:23 Dose: Not Given Multivitamins (Hexavitamin) 1 tab PO DAILY [facility] Last Admin: 07/30/17 09:56 Dose: 1 tab Ondansetron HCl (Zofran Tab) 4 mg PO Q8 PRN PRN Reason: Nausea/Vomiting Promethazine HCl (Phenergan Inj) 25 mg IM QID PRN PRN Reason: Nausea/Vomiting, Unable PO Saccharomyces Boulardii (Florastor) 250 mg PO BID [facility] Last Admin: 07/30/17 09:56 Dose: 250 mg Thiamine HCl (Vitamin B1 Tab) 100 mg PO DAILY [facility] Last Admin: 07/30/17 09:56 Dose: 100 mg Vitamin A (Vitamin A & D Oint Ud Foilpak) 1 ea TOP BID [facility] Last Admin: 07/30/17 09:56 Dose: 1 ea - Labs Labs: 07/30/17 07:35 07/30/17 07:35 PT 11.2 SECONDS (9.7-12.2) 07/25/17 01:26 INR 1.0 07/25/17 01:26 APTT 27 SECONDS (21-34) 07/25/17 01:26 - Additional Findings Additional findings: - Constitutional Appears: Non-toxic - Head Exam Head Exam: NORMAL INSPECTION - Eye Exam Eye Exam: EOMI, Normal appearance Pupil Exam: NORMAL ACCOMODATION, PERRL - ENT Exam ENT Exam: Mucous Membranes Moist - Neck Exam Neck Exam: Full ROM - Respiratory Exam Respiratory Exam: NORMAL BREATHING PATTERN - GI/Abdominal Exam GI & Abdominal Exam: Soft, Normal Bowel Sounds - Extremities Exam Extremities Exam: Full ROM - Neurological Exam Neurological Exam: Alert, Awake, Oriented x3 - Psychiatric Exam Psychiatric exam: Normal Affect, Normal Mood - Skin Skin Exam: Intact, Normal Color Assessment and Plan - Assessment and Plan (Free Text) Assessment: Pneumonia 07/30: mycobacteria negative (prelim); sputum culture negative. Quanteferon Positive. Continue contact isolation. Sputum culture- normal adali Urine legionella and mycoplasma negative influenza negative CT Chest 07/25 - finding highly suspicious for a multifocal bilateral groundglass pneumonia greatest in the upper lobe and lingula. small amount of mucus plugging or aspirated debris in the trachea and right mainstem brochus Ceftriaxone 1gram IVPB daily (started 07/25) Azithromycin 500mg IVPB daily (started 07/25) Duonebs prn f/u am labs on contact isolation Bacteremia 07/30: WBC WNL at 5.9 Echo - negative for vegetation Blood cultures 07/23: prelim: gram positive cocci ID consulted, Dr. Vergara - help appreciated Vancomycin 1gram Q12 hours started 07/25 On Florastor Vanc trough 5.6 F/U next trough 07/28 at 21:00 Congestive Heart failure diastolic dysfunction new diagnosis Echo: LV is moderately dilated, EF 50-55%, Grade 1 abnormal relaxation pattern. LA is mildly dilated. trace aortic regurg. mitral regrug is trace to mild will avoid bblock for now due to hx drug/cocaine abuse. Will talk to patient about the dangers of taking beta block with cocaine/drug use Losartan 25mg PO daily Lipid panel within normal limits Alcohol Use disorder Monitor for signs of withdrawal Alcohol level on admission 206 folic acid/mv/thiamine dialy seizure/aspiration precautions Per psychiatry: - Librium - Psychoeducation - Encourage healthy lifestyle choices - Refer to inpatient rehab Polysubstance use disorder monitor for signs of withdrawal f/u Psych recommendations - Dr. Franco: - Methadone Taper - Psychoeducation - Encourage healthy lifestyle choices - Refer to inpatient rehab Electrolyte imbalance -Hyperphosphatemia, P 6.1 - Phoslo BID [id number], f/u labs. Prophylactic measures Lovenox 40mg SC daily Pepcid 20mg PO BID Regular diet 07/30: PT - eval/treat (followup recs) Discussed with attending; all management and planning per Dr. Puentes.
--- NOTE | 2017-07-30 10:59 | CP.PCM.PN ---
Subjective - Date & Time of Evaluation Date of Evaluation: 07/30/17 Time of Evaluation: 08:00 - Subjective Subjective: slowly improving iv rx in progress Objective - Vital Signs/Intake and Output Vital Signs (last 24 hours): Temp Pulse Resp BP Pulse Ox 98.3 F 69 20 96/62 L 95 07/30/17 07:43 07/30/17 07:43 07/30/17 07:43 07/30/17 07:43 07/30/17 07:43 Intake and Output: 07/30/17 07/30/17 06:59 18:59 Intake Total 1500 Balance 1500 - Medications Medications: Current Medications Benzocaine (Orajel 7.5%) 0 gm MM Q6H PRN PRN Reason: Other [facility] Stop: 08/01/17 08:01 Chlordiazepoxide (Librium) 25 mg PO Q4H PRN PRN Reason: Alcohol Withdrawal Last Admin: 07/30/17 00:20 Dose: 25 mg Clonidine HCl (Catapres) 0.1 mg PO Q8 PRN PRN Reason: COWS Score More or Equal to 5 Last Admin: 07/28/17 16:55 Dose: 0.1 mg Enoxaparin Sodium (Lovenox) 40 mg SC DAILY [facility] Last Admin: 07/30/17 09:55 Dose: 40 mg Famotidine (Pepcid) 20 mg PO BID [facility] Last Admin: 07/30/17 09:56 Dose: 20 mg Folic Acid (Folic Acid) 1 mg PO DAILY [facility] Last Admin: 07/30/17 09:56 Dose: 1 mg Azithromycin 500 mg/ Sodium (Chloride) 250 mls @ 250 mls/hr IVPB DAILY [facility] Last Admin: 07/29/17 10:34 Dose: 250 mls/hr Ceftriaxone Sodium 1 gm/ (Sodium Chloride) 100 mls @ 100 mls/hr IVPB DAILY [facility] Last Admin: 07/30/17 09:57 Dose: 100 mls/hr Vancomycin/Sodium Chloride (Vancomycin 1 Gm/Ns 200 Ml) 1 gm in 200 mls @ 166.6 mls/hr IVPB Q12H [facility] Stop: 07/30/17 12:31 Last Admin: 07/30/17 00:18 Dose: 166.6 mls/hr Ibuprofen (Motrin Tab) 400 mg PO Q6H PRN PRN Reason: Pain, Mild (1-3) Last Admin: 07/29/17 22:11 Dose: 400 mg Loperamide HCl (Imodium) 2 mg PO Q8 PRN PRN Reason: Diarrhea Losartan Potassium (Cozaar) 25 mg PO DAILY [facility] Last Admin: 07/29/17 09:23 Dose: Not Given Multivitamins (Hexavitamin) 1 tab PO DAILY [facility] Last Admin: 07/30/17 09:56 Dose: 1 tab Ondansetron HCl (Zofran Tab) 4 mg PO Q8 PRN PRN Reason: Nausea/Vomiting Promethazine HCl (Phenergan Inj) 25 mg IM QID PRN PRN Reason: Nausea/Vomiting, Unable PO Saccharomyces Boulardii (Florastor) 250 mg PO BID [facility] Last Admin: 07/30/17 09:56 Dose: 250 mg Thiamine HCl (Vitamin B1 Tab) 100 mg PO DAILY [facility] Last Admin: 07/30/17 09:56 Dose: 100 mg Vitamin A (Vitamin A & D Oint Ud Foilpak) 1 ea TOP BID [facility] Last Admin: 07/30/17 09:56 Dose: 1 ea - Labs Labs: 07/30/17 07:35 07/30/17 07:35 PT 11.2 SECONDS (9.7-12.2) 07/25/17 01:26 INR 1.0 07/25/17 01:26 APTT 27 SECONDS (21-34) 07/25/17 01:26 - Constitutional Appears: Non-toxic, Chronically Ill - Head Exam Head Exam: NORMOCEPHALIC - Eye Exam Eye Exam: PERRL - ENT Exam ENT Exam: Mucous Membranes Dry - Neck Exam Neck Exam: absent: Lymphadenopathy - Respiratory Exam Respiratory Exam: Decreased Breath Sounds - Cardiovascular Exam Cardiovascular Exam: REGULAR RHYTHM - GI/Abdominal Exam GI & Abdominal Exam: Distended, Soft Assessment and Plan (1) Abdominal pain Status: Acute (2) Hemoptysis Status: Acute (3) Pneumonia Status: Acute (4) Polysubstance abuse Status: Acute (5) Alcohol abuse Status: Acute
[2017-07-31 08:08] LABS: BASO % 0.7 % (0.0-2.0); EOS # 0.2 K/uL (0.0-0.7); EOS % 3.4 % (0.0-4.0); HEMOGLOBIN 12.9 g/dL (12.0-18.0); LYMPH % 17.7 % (20.0-40.0); MEAN CELL VOLUME 89.1 fL (80.0-94.0); MEAN CORPUSCULAR HEMOGLOBIN 29.9 pg (27.0-31.0); MEAN CORPUSCULAR HGB CONC 33.5 g/dL (33.0-37.0); MEAN PLATELET VOLUME 8.4 fL (7.2-11.7); MONO % 19.3 % (0.0-10.0); NEUT # 3.2 K/uL (1.8-7.0); NEUT % 58.9 % (50.0-75.0); NRBC % 0.1 % (0.0-2.0); RBC 4.33 Mil/uL (4.40-5.90); WHITE BLOOD COUNT 5.4 K/uL (4.8-10.8)
[2017-07-31 08:34] LABS: ALBUMIN 3.3 g/dL (3.5-5.0); CALCIUM 8.7 mg/dl (8.6-10.4)
[2017-07-31] MEDS: Vitamins A & D Oint UD Foilpak TOP SCH ×2 (09:35→19:26)
[2017-07-31] MEDS: Multiple Vitamins Tab PO SCH (09:35)
[2017-07-31] MEDS: Saccharomyces Boulardi 250 mg Cap PO SCH ×2 (09:35→19:27)
[2017-07-31] MEDS: Enoxaparin 40 mg Syringe SC SCH (09:35)
[2017-07-31] MEDS: Azithromycin 500 MG in Sodium Chloride 0.9% 250 ML IVPB SCH (09:43)
[2017-07-31] MEDS: guaiFENesin 600 mg ER Tab PO SCH ×2 (12:20→19:26)
--- NOTE | 2017-07-31 12:25 | CP.PCM.PN ---
Subjective - Date & Time of Evaluation Date of Evaluation: 07/31/17 Time of Evaluation: 07:05 - Subjective Subjective: PGY 2 Medicine Note- Dr. Puentes's service Patient seen and examined at bedside. No acute overnight events per nursing. Patient reports he is tolerating his diet, however he feels constipated. He also feel like he can't get his mucous out when he coughs. Patient is lethargic. Currently denies chest pain, headaches, palpitations, nausea, vomiting, or diarrhea. Objective - Vital Signs/Intake and Output Vital Signs (last 24 hours): Temp Pulse Resp BP Pulse Ox 98.1 F 58 L 20 160/90 H 97 07/31/17 07:41 07/31/17 07:41 07/31/17 07:41 07/31/17 07:41 07/31/17 07:41 - Medications Medications: Current Medications Benzocaine (Orajel 7.5%) 0 gm MM Q6H PRN PRN Reason: Other [facility]: 08/01/17 08:01 Last Admin: 07/31/17 09:13 Dose: 667 mg Chlordiazepoxide (Librium) 25 mg PO Q4H PRN PRN Reason: Alcohol Withdrawal Last Admin: 07/31/17 06:36 Dose: 25 mg Clonidine HCl (Catapres) 0.1 mg PO Q8 PRN PRN Reason: COWS Score More or Equal to 5 Last Admin: 07/28/17 16:55 Dose: 0.1 mg Docusate Sodium (Colace) 100 mg PO TID [facility] Enoxaparin Sodium (Lovenox) 30 mg SC DAILY [facility] Famotidine (Pepcid) 20 mg PO DAILY [facility] Folic Acid (Folic Acid) 1 mg PO DAILY [facility] Last Admin: 07/31/17 09:35 Dose: 1 mg Guaifenesin (Mucinex La) 600 mg PO BID [facility] Azithromycin 500 mg/ Sodium (Chloride) 250 mls @ 250 mls/hr IVPB DAILY [facility] Last Admin: 07/31/17 09:43 Dose: 250 mls/hr Ceftriaxone Sodium 1 gm/ (Sodium Chloride) 100 mls @ 100 mls/hr IVPB DAILY [facility] Last Admin: 07/31/17 09:42 Dose: 100 mls/hr Ibuprofen (Motrin Tab) 400 mg PO Q6H PRN PRN Reason: Pain, Mild (1-3) Last Admin: 07/29/17 22:11 Dose: 400 mg Loperamide HCl (Imodium) 2 mg PO Q8 PRN PRN Reason: Diarrhea Losartan Potassium (Cozaar) 25 mg PO DAILY [facility] Last Admin: 07/31/17 09:35 Dose: 25 mg Multivitamins (Hexavitamin) 1 tab PO DAILY [facility] Last Admin: 07/31/17 09:35 Dose: 1 tab Ondansetron HCl (Zofran Tab) 4 mg PO Q8 PRN PRN Reason: Nausea/Vomiting Last Admin: 07/31/17 00:46 Dose: 4 mg Promethazine HCl (Phenergan Inj) 25 mg IM QID PRN PRN Reason: Nausea/Vomiting, Unable PO Saccharomyces Boulardii (Florastor) 250 mg PO BID [facility] Last Admin: 07/31/17 09:35 Dose: 250 mg Thiamine HCl (Vitamin B1 Tab) 100 mg PO DAILY [facility] Last Admin: 07/31/17 09:35 Dose: 100 mg Vitamin A (Vitamin A & D Oint Ud Foilpak) 1 ea TOP BID [facility] Last Admin: 07/31/17 09:35 Dose: 1 ea - Labs Labs: 07/31/17 07:51 07/31/17 07:51 PT 11.2 SECONDS (9.7-12.2) 07/25/17 01:26 INR 1.0 07/25/17 01:26 APTT 27 SECONDS (21-34) 07/25/17 01:26 - Additional Findings Additional findings: - Constitutional Appears: Non-toxic - Head Exam Head Exam: NORMAL INSPECTION - Eye Exam Eye Exam: EOMI, Normal appearance Pupil Exam: NORMAL ACCOMODATION, PERRL - ENT Exam ENT Exam: Mucous Membranes Moist - Neck Exam Neck Exam: Full ROM - Respiratory Exam Respiratory Exam: NORMAL BREATHING PATTERN, Wheezes (Left upper lung field) absent: Rales, Rhonchi - GI/Abdominal Exam GI & Abdominal Exam: Soft, Normal Bowel Sounds; absent: Tenderness - Extremities Exam Extremities Exam: Full ROM - Neurological Exam Neurological Exam: Alert, Awake, Oriented x3 - Psychiatric Exam Psychiatric exam: Normal Affect, Normal Mood - Skin Skin Exam: Intact, Normal Color Assessment and Plan - Assessment and Plan (Free Text) Assessment: Pneumonia 2/13: mycobacteria negative x2 (prelim); Quanteferon Positive. Continue contact isolation. Mucinex for congestion. 07/30: mycobacteria negative (prelim); sputum culture negative. Quanteferon Positive. Continue contact isolation. Sputum culture- normal adali Urine legionella and mycoplasma negative influenza negative CT Chest 07/25 - finding highly suspicious for a multifocal bilateral groundglass pneumonia greatest in the upper lobe and lingula. small amount of mucus plugging or aspirated debris in the trachea and right mainstem brochus Ceftriaxone 1gram IVPB daily (started 07/25) Azithromycin 500mg IVPB daily (started 07/25) Duonebs prn f/u am labs on contact isolation Bacteremia 07/31: WBC WNL Echo - negative for vegetation Blood cultures 07/23: prelim: gram positive cocci ID consulted, Dr. Vergara - help appreciated Vancomycin 1gram Q12 hours started 07/25 On Florastor Vanc trough 5.6 F/U next trough 07/28 at 21:00 Congestive Heart failure diastolic dysfunction new diagnosis Echo: LV is moderately dilated, EF 50-55%, Grade 1 abnormal relaxation pattern. LA is mildly dilated. trace aortic regurg. mitral regrug is trace to mild will avoid bblock for now due to hx drug/cocaine abuse. Will talk to patient about the dangers of taking beta block with cocaine/drug use Losartan 25mg PO daily Lipid panel within normal limits Alcohol Use disorder Monitor for signs of withdrawal Alcohol level on admission 206 folic acid/mv/thiamine dialy seizure/aspiration precautions Per psychiatry: - Librium - Psychoeducation - Encourage healthy lifestyle choices - Refer to inpatient rehab Polysubstance use disorder monitor for signs of withdrawal f/u Psych recommendations - Dr. Franco: - Methadone Taper - Psychoeducation - Encourage healthy lifestyle choices - Refer to inpatient rehab Acute Kidney Injury Bun/ Cr elevated at 24 / 3.6 (inc.) -> pepcid and lovenox adjusted for renal dosing. Electrolyte imbalance -Hyperphosphatemia, P 6.1 - Phoslo BID [id number], f/u labs. P 5.4 -> continue to monitor. Prophylactic measures Lovenox 40mg SC daily Pepcid 20mg PO BID Regular diet Colace 100mg TID for constipation 07/30: PT - eval/treat (followup recs) Discussed with attending; all management and planning per Dr. Puentes.
[2017-08-01 07:41] LABS: BASO # 0.1 K/uL (0.0-0.2); EOS # 0.1 K/uL (0.0-0.7); HEMOGLOBIN 13.1 g/dL (12.0-18.0); LYMPH # 1.3 K/uL (1.0-4.3); LYMPH % 23.2 % (20.0-40.0); MEAN CELL VOLUME 88.9 fL (80.0-94.0); MEAN CORPUSCULAR HEMOGLOBIN 30.2 pg (27.0-31.0); MEAN PLATELET VOLUME 8.5 fL (7.2-11.7); MONO # 0.8 K/uL (0.0-0.8); NEUT # 3.3 K/uL (1.8-7.0); NEUT % 58.8 % (50.0-75.0); NRBC % 0.1 % (0.0-2.0); RBC 4.35 Mil/uL (4.40-5.90); RED CELL DISTRIBUTION WIDTH 13.9 % (11.5-14.5); WHITE BLOOD COUNT 5.6 K/uL (4.8-10.8)
[2017-08-01 08:19] LABS: ALBUMIN 3.4 g/dL (3.5-5.0); CALCIUM 9.1 mg/dl (8.6-10.4); MAGNESIUM 2.1 mg/dL (1.6-2.3)
--- NOTE | 2017-08-01 09:32 | CP.PCM.PN ---
Subjective - Date & Time of Evaluation Date of Evaluation: 08/01/17 Time of Evaluation: 09:33 - Subjective Subjective: PGY2 Medicine Note for Dr. Puentes; all management as per Dr. Puentes Patient seen and examined at bedside this AM; patient is admitting to abdominal pain which is affecting his eating however there is an empty box of oreos next to his bed which he has eaten even though he is on a dysphagia diet; denies all other symptoms; fevers/chills, [place], CP, SOB, N/V/D, dysuria/freq/urg or lower extremity pain/swelling. Denies leg swelling in past or SOB on exertion. Objective - Vital Signs/Intake and Output Vital Signs (last 24 hours): Temp Pulse Resp BP Pulse Ox 98.1 F 60 20 141/87 95 08/01/17 07:35 08/01/17 07:35 08/01/17 07:35 08/01/17 07:35 08/01/17 07:35 Intake and Output: 08/01/17 08/01/17 06:59 18:59 Output Total 1100 Balance -1100 - Medications Medications: Current Medications Benzocaine (Orajel 7.5%) 0 gm MM Q6H PRN PRN Reason: Other Chlordiazepoxide (Librium) 25 mg PO Q4H PRN PRN Reason: Alcohol Withdrawal Last Admin: 07/31/17 06:36 Dose: 25 mg Clonidine HCl (Catapres) 0.1 mg PO Q8 PRN PRN Reason: COWS Score More or Equal to 5 Last Admin: 07/31/17 19:26 Dose: 0.1 mg Docusate Sodium (Colace) 100 mg PO TID [facility] Last Admin: 07/31/17 19:26 Dose: 100 mg Enoxaparin Sodium (Lovenox) 30 mg SC DAILY [facility] Famotidine (Pepcid) 20 mg PO DAILY [facility] Folic Acid (Folic Acid) 1 mg PO DAILY [facility] Last Admin: 07/31/17 09:35 Dose: 1 mg Guaifenesin (Mucinex La) 600 mg PO BID [facility] Last Admin: 07/31/17 19:26 Dose: 600 mg Azithromycin 500 mg/ Sodium (Chloride) 250 mls @ 250 mls/hr IVPB DAILY [facility] Last Admin: 07/31/17 09:43 Dose: 250 mls/hr Ceftriaxone Sodium 1 gm/ (Sodium Chloride) 100 mls @ 100 mls/hr IVPB DAILY [facility] Last Admin: 07/31/17 09:42 Dose: 100 mls/hr Ibuprofen (Motrin Tab) 400 mg PO Q6H PRN PRN Reason: Pain, Mild (1-3) Last Admin: 07/29/17 22:11 Dose: 400 mg Loperamide HCl (Imodium) 2 mg PO Q8 PRN PRN Reason: Diarrhea Losartan Potassium (Cozaar) 25 mg PO DAILY [facility] Last Admin: 07/31/17 09:35 Dose: 25 mg Multivitamins (Hexavitamin) 1 tab PO DAILY [facility] Last Admin: 07/31/17 09:35 Dose: 1 tab Ondansetron HCl (Zofran Tab) 4 mg PO Q8 PRN PRN Reason: Nausea/Vomiting Last Admin: 07/31/17 00:46 Dose: 4 mg Promethazine HCl (Phenergan Inj) 25 mg IM QID PRN PRN Reason: Nausea/Vomiting, Unable PO Saccharomyces Boulardii (Florastor) 250 mg PO BID [facility] Last Admin: 07/31/17 19:27 Dose: 250 mg Thiamine HCl (Vitamin B1 Tab) 100 mg PO DAILY [facility] Last Admin: 07/31/17 09:35 Dose: 100 mg Vitamin A (Vitamin A & D Oint Ud Foilpak) 1 ea TOP BID [facility] Last Admin: 07/31/17 19:26 Dose: 1 ea - Labs Labs: 08/01/17 07:11 08/01/17 07:11 PT 11.2 SECONDS (9.7-12.2) 07/25/17 01:26 INR 1.0 07/25/17 01:26 APTT 27 SECONDS (21-34) 07/25/17 01:26 - Constitutional Appears: Non-toxic - Head Exam Head Exam: ATRAUMATIC - Eye Exam Eye Exam: EOMI - ENT Exam ENT Exam: Mucous Membranes Moist - Neck Exam Neck Exam: Full ROM - Respiratory Exam Respiratory Exam: Clear to Ausculation Bilateral, NORMAL BREATHING PATTERN. absent: Rales, Rhonchi, Wheezes - Cardiovascular Exam Cardiovascular Exam: REGULAR RHYTHM, +S1, +S2 - GI/Abdominal Exam GI & Abdominal Exam: Soft, Tenderness (epigastrium), Normal Bowel Sounds - Extremities Exam Extremities Exam: Full ROM - Back Exam Back Exam: NORMAL INSPECTION. absent: CVA tenderness (L), CVA tenderness (R) - Neurological Exam Neurological Exam: Alert, Awake, Oriented x3 - Psychiatric Exam Psychiatric exam: Normal Affect - Skin Skin Exam: Warm Assessment and Plan - Assessment and Plan (Free Text) Assessment: Pneumonia 08/01: AFB continue to be neg; quant positive; c/w contact; breathing is improved ; will monitor 07/31: mycobacteria negative x2 (prelim); Quanteferon Positive. Continue contact isolation. Mucinex for congestion. 07/30: mycobacteria negative (prelim); sputum culture negative. Quanteferon Positive. Continue contact isolation. Sputum culture- normal adali Urine legionella and mycoplasma negative influenza negative CT Chest 07/25 - finding highly suspicious for a multifocal bilateral groundglass pneumonia greatest in the upper lobe and lingula. small amount of mucus plugging or aspirated debris in the trachea and right mainstem brochus Ceftriaxone 1gram IVPB daily (started 07/25) Azithromycin 500mg IVPB daily (started 07/25) Duonebs prn f/u am labs on contact isolation Bacteremia; possible 08/01: patient remains afebrile, no WBC, only one bottle grew sensitive to all strep pneumo; will re-order -echo negative for vegetations, no murmur -f/u blood cultures -c/w ceftriaxone and azithromycin for now 07/31: WBC WNL Echo - negative for vegetation Blood cultures 07/23: prelim: gram positive cocci ID consulted, Dr. Vergara - help appreciated On Florastor Vanc trough 5.6 F/U next trough 07/28 at 21:00 Congestive Heart failure diastolic dysfunction new diagnosis Echo: LV is moderately dilated, EF 50-55%, Grade 1 abnormal relaxation pattern. LA is mildly dilated. trace aortic regurg. mitral regrug is trace to mild will avoid bblock for now due to hx drug/cocaine abuse. Will talk to patient about the dangers of taking beta block with cocaine/drug use Losartan 25mg PO daily Lipid panel within normal limits Alcohol Use disorder Monitor for signs of withdrawal Alcohol level on admission 206 folic acid/mv/thiamine dialy seizure/aspiration precautions Per psychiatry: - Librium - Psychoeducation - Encourage healthy lifestyle choices - Refer to inpatient rehab Polysubstance use disorder monitor for signs of withdrawal f/u Psych recommendations - Dr. Franco: - Methadone Taper - Psychoeducation - Encourage healthy lifestyle choices - Refer to inpatient rehab Acute Kidney Injury Bun/ Cr elevated > pepcid and lovenox adjusted for renal dosing -f/u nephrology eval; thank you Dr. Mccloud -strict Sonja; patient is making adequate urine -will continue to monitor Hepatitis C; chronic -outpatient management -HIV/RPR negative Electrolyte imbalance -Hyperphosphatemia, P 6.1 - Phoslo BID [id number], f/u labs. P 5.4 -> continue to monitor. Prophylactic measures Lovenox 40mg SC daily Pepcid 20mg PO BID Regular diet Colace 100mg TID for constipation Discussed with attending; all management and planning per Dr. Puentes.
[2017-08-01] MEDS: Saccharomyces Boulardi 250 mg Cap PO SCH ×2 (09:43→17:36)
[2017-08-01] MEDS: guaiFENesin 600 mg ER Tab PO SCH ×2 (09:43→17:36)
[2017-08-01] MEDS: Multiple Vitamins Tab PO SCH (09:43)
[2017-08-01] MEDS: Enoxaparin 30 mg Syringe SC SCH (09:43)
[2017-08-01] MEDS: Vitamins A & D Oint UD Foilpak TOP SCH ×2 (09:44→17:36)
[2017-08-01] MEDS: Azithromycin 500 MG in Sodium Chloride 0.9% 250 ML IVPB SCH (09:49)
--- NOTE | 2017-08-01 15:58 | CP.PCM.CON ---
History of Present Illness - History of Present Illness History of Present Illness: Initial Nephrology Consultation: Assessment: Stable Acute Kidney Injury (N17.9) likely due to hemodynamic inury. r/o pulmo-renal syndrome and Hep C related GN HTN (I12.9) PNEUMONIA polysubstance abuse with Eoth and heroin, smoker chronic Hep C + Plan No acute need for renal replacement therapy at this time. Hypertension control with meds as ordered. hold ACEI/ARB due to ALBA Monitor Input/Output, daily weights and renal function with basic metabolic panel Check urine analysis, spot protein/creatinine and albumin/creatinine ratio Check ANCA (MPO and NM-3), Anti GBM antibody, C3/C4, RA factor/cryoglobulins Dose meds/antibiotics for reduced GFR. Avoid fleets enema/magnesium based laxatives. Avoid nephrotoxins/NSAIDs/ iodinated contrast (unless needed emergently) Glycemic control Further work up/management as per primary team Thanks for allowing me to participate in care of your patient. Will follow patient with you. Please call if any Qs Dr Agapito Conte Office: [phone] Chief Complaint; cough reason for consult; ALBA HPI: Pt is a 57 M with hx of polysubstance abuse with Eoth and heroin presented with complaints of SOB, cough with phlegm (blood streaks) and being manageed for pneumonia. renal consult for ALBA Denies OTC/herbal meds or NSAIDs No recent iodinated contrast exposure. episodes of low BP on 07/29 and 07/30 (90 /60s) renal function normal until 07/29/17 when cr osorio to 1.3 and thereafter stable around 3.5 ROS: Cardiovascular: No chest pain. Pulmonary:improved shortness of breath Gastrointestinal: c/o lower abdominal pain No nausea. No vomiting. Genitourinary: mild pain while urinating. Denies blood in urine. reports decreased urine output All other negative Physical Examination: General Appearance: Comfortable, in no acute respiratory distress, co-operative . Vitals reviewed and noted as below Head; Atraumatic, normocephalic ENT: no ulcers no thrush. Tongue is midline. Oropharynx: no rash or ulcers. EYES: Pupils are equal, round and reactive to light accommodation. Eye muscles and extraocular movement intact. Sclera is anicteric. Neck; supple no lymphadenopathy, no thyromegaly or bruit Lungs: Normal respiratory rate/effort. Breath sounds bilateral equal and basal crackle/rale Heart: Normal rate. s1s2 normal. No rub or gallop. Extremities: no edema. No varicose veins Neurological: Patient is alert, awake and oriented to person, place and time. No focal deficit. Strength bilateral appropriate and equal Skin: Warm and dry. Normal turgor. No rash. Palpitation: Normal elasticity for age Abdomen: Abdomen is soft. Bowel sounds +. There is no abdominal tenderness, no guarding/rigidity no organomegaly Psych: normal insight and normal affect/mood MSK: no joint tenderness or swelling. Digits and nails normal, no deformity : kidney or bladder not palpable Labs/imaging reviewed. Past medical history, past surgical history, family history, social history, allergy reviewed and noted as below Family hx: no hx of CKD. Rest non-contributory renal imaging WNL initial UA normal Past Patient History - Past Social History Smoking Status: Former Smoker - PULMONARY Hx Asthma: No - MUSCULOSKELETAL/RHEUMATOLOGICAL Hx Falls: No - GASTROINTESTINAL Hx Gastritis: Yes - PSYCHIATRIC Hx Substance Use: Yes (ETOH, OPIATES) - SURGICAL HISTORY Hx Cholecystectomy: Yes - ANESTHESIA Hx Anesthesia: Yes Hx Anesthesia Reactions: No Meds Allergies/Adverse Reactions: Allergies Allergy/AdvReac Type Severity Reaction Status Date / Time No Known Allergies Allergy Verified 07/25/17 00:25 - Medications Medications: Current Medications Benzocaine (Orajel 7.5%) 0 gm MM Q6H PRN PRN Reason: Other Chlordiazepoxide (Librium) 25 mg PO Q4H PRN PRN Reason: Alcohol Withdrawal Last Admin: 07/31/17 06:36 Dose: 25 mg Clonidine HCl (Catapres) 0.1 mg PO Q8 PRN PRN Reason: COWS Score More or Equal to 5 Last Admin: 07/31/17 19:26 Dose: 0.1 mg Docusate Sodium (Colace) 100 mg PO TID [facility] Last Admin: 08/01/17 14:02 Dose: 100 mg Enoxaparin Sodium (Lovenox) 30 mg SC DAILY [facility] Last Admin: 08/01/17 09:43 Dose: 30 mg Famotidine (Pepcid) 20 mg PO DAILY [facility] Last Admin: 08/01/17 09:43 Dose: 20 mg Folic Acid (Folic Acid) 1 mg PO DAILY [facility] Last Admin: 08/01/17 09:43 Dose: 1 mg Guaifenesin (Mucinex La) 600 mg PO BID [facility] Last Admin: 08/01/17 09:43 Dose: 600 mg Azithromycin 500 mg/ Sodium (Chloride) 250 mls @ 250 mls/hr IVPB DAILY [facility] Last Admin: 08/01/17 09:49 Dose: 250 mls/hr Ceftriaxone Sodium 1 gm/ (Sodium Chloride) 100 mls @ 100 mls/hr IVPB DAILY [facility] Last Admin: 08/01/17 09:49 Dose: 100 mls/hr Loperamide HCl (Imodium) 2 mg PO Q8 PRN PRN Reason: Diarrhea Multivitamins (Hexavitamin) 1 tab PO DAILY [facility] Last Admin: 08/01/17 09:43 Dose: 1 tab Ondansetron HCl (Zofran Tab) 4 mg PO Q8 PRN PRN Reason: Nausea/Vomiting Last Admin: 07/31/17 00:46 Dose: 4 mg Promethazine HCl (Phenergan Inj) 25 mg IM QID PRN PRN Reason: Nausea/Vomiting, Unable PO Saccharomyces Boulardii (Florastor) 250 mg PO BID [facility] Last Admin: 08/01/17 09:43 Dose: 250 mg Thiamine HCl (Vitamin B1 Tab) 100 mg PO DAILY [facility] Last Admin: 08/01/17 09:43 Dose: 100 mg Vitamin A (Vitamin A & D Oint Ud Foilpak) 1 ea TOP BID [facility] Last Admin: 08/01/17 09:44 Dose: 1 ea Results - Vital Signs Recent Vital Signs: Last Vital Signs Temp 98.1 F 08/01/17 13:37 Pulse 52 L 08/01/17 13:37 Resp 20 08/01/17 13:37 BP 145/94 H 08/01/17 13:37 Pulse Ox 97 08/01/17 13:37 - Labs Result Diagrams: 08/01/17 07:11 08/01/17 07:11 Labs: Laboratory Results - last 24 hr 08/01/17 08/01/17 07:11 07:11 WBC 5.6 RBC 4.35 L Hgb 13.1 Hct 38.6 MCV 88.9 MCH 30.2 MCHC 34.0 RDW 13.9 Plt Count 261 MPV 8.5 Neut % (Auto) 58.8 Lymph % (Auto) 23.2 Bullock % (Auto) 15.0 H Eos % (Auto) 2.0 Baso % (Auto) 1.0 Neut # (Auto) 3.3 Lymph # (Auto) 1.3 Bullock # (Auto) 0.8 Eos # (Auto) 0.1 Baso # (Auto) 0.1 Sodium 136 Potassium 4.0 Chloride 99 Carbon Dioxide 27 Anion Gap 13 BUN 24 H Creatinine 3.5 H Est GFR ( Amer) 22 Est GFR (Non-Af Amer) 18 Random Glucose 96 Calcium 9.1 Phosphorus 5.3 H Magnesium 2.1 Total Bilirubin 0.4 AST 37 ALT 27 Alkaline Phosphatase 73 Total Protein 6.8 Albumin 3.4 L Globulin 3.3 Albumin/Globulin Ratio 1.0
[2017-08-01 22:02] LABS: URINE BACTERIA RARE (<OCC); URINE BILIRUBIN NEGATIVE (NEGATIVE); URINE BLOOD NEGATIVE (NEGATIVE); URINE CLARITY Clear (Clear); URINE COLOR Yellow (YELLOW); URINE GLUCOSE (UA) NORMAL (Normal); URINE LEUKOCYTE ESTERASE NEG Leu/uL (Negative); URINE NITRATE NEGATIVE (NEGATIVE); URINE PROTEIN NEGATIVE (NEGATIVE); URINE UROBILINOGEN NORMAL mg/dL (0.2-1.0)
[2017-08-02 08:01] LABS: BASO % 0.6 % (0.0-2.0); EOS # 0.1 K/uL (0.0-0.7); EOS % 1.9 % (0.0-4.0); HEMOGLOBIN 12.8 g/dL (12.0-18.0); LYMPH # 1.7 K/uL (1.0-4.3); LYMPH % 27.5 % (20.0-40.0); MEAN CELL VOLUME 88.8 fL (80.0-94.0); MEAN CORPUSCULAR HEMOGLOBIN 30.2 pg (27.0-31.0); MEAN CORPUSCULAR HGB CONC 34.1 g/dL (33.0-37.0); MEAN PLATELET VOLUME 8.5 fL (7.2-11.7); MONO # 0.8 K/uL (0.0-0.8); MONO % 12.7 % (0.0-10.0); NEUT # 3.5 K/uL (1.8-7.0); NEUT % 57.3 % (50.0-75.0); RBC 4.22 Mil/uL (4.40-5.90); RED CELL DISTRIBUTION WIDTH 13.9 % (11.5-14.5); WHITE BLOOD COUNT 6.1 K/uL (4.8-10.8)
[2017-08-02 08:18] LABS: ALBUMIN 3.4 g/dL (3.5-5.0); CALCIUM 8.7 mg/dl (8.6-10.4); MAGNESIUM 2.1 mg/dL (1.6-2.3)
[2017-08-02 08:27] LABS: COMPLEMENT C4 31.5 mg/dL (14.0-44.0)
[2017-08-02] MEDS: guaiFENesin 600 mg ER Tab PO SCH ×2 (10:14→17:17)
[2017-08-02] MEDS: Multiple Vitamins Tab PO SCH (10:14)
[2017-08-02] MEDS: Vitamins A & D Oint UD Foilpak TOP SCH ×2 (10:14→17:17)
[2017-08-02] MEDS: Enoxaparin 30 mg Syringe SC SCH (10:15)
[2017-08-02] MEDS: Saccharomyces Boulardi 250 mg Cap PO SCH ×2 (10:15→17:17)
--- NOTE | 2017-08-02 11:27 | CP.PCM.PN ---
Subjective - Date & Time of Evaluation Date of Evaluation: 08/02/17 Time of Evaluation: 11:29 - Subjective Subjective: PGY2 Note for Dr. Puentes, all management as per Dr. Puentes Patient seen and examined at bedside; patient looks clinically better today and is walking around the unit. He is eating well; has another box of oreos finished next to his bed as well as an entire box of donuts; patient denies fevers/chills, [place], CP, SOB, abdominal pain, N/V/D, dysuria/freq/urg or lower extremity pain/swelling. Admits to testicular tenderness and unprotected sex with women only. Objective - Vital Signs/Intake and Output Vital Signs (last 24 hours): Temp Pulse Resp BP Pulse Ox 97.7 F 70 20 107/76 96 08/02/17 07:00 08/02/17 07:00 08/02/17 07:00 08/02/17 07:00 08/02/17 07:00 - Medications Medications: Current Medications Benzocaine (Orajel 7.5%) 0 gm MM Q6H PRN PRN Reason: Other Clonidine HCl (Catapres) 0.1 mg PO Q8 PRN PRN Reason: COWS Score More or Equal to 5 Last Admin: 07/31/17 19:26 Dose: 0.1 mg Docusate Sodium (Colace) 100 mg PO TID [facility] Last Admin: 08/02/17 10:14 Dose: 100 mg Enoxaparin Sodium (Lovenox) 30 mg SC DAILY [facility] Last Admin: 08/02/17 10:15 Dose: 30 mg Famotidine (Pepcid) 20 mg PO DAILY [facility] Last Admin: 08/02/17 10:14 Dose: 20 mg Folic Acid (Folic Acid) 1 mg PO DAILY [facility] Last Admin: 08/02/17 10:14 Dose: 1 mg Guaifenesin (Mucinex La) 600 mg PO BID [facility] Last Admin: 08/02/17 10:14 Dose: 600 mg Azithromycin 500 mg/ Sodium (Chloride) 250 mls @ 250 mls/hr IVPB DAILY [facility] Last Admin: 08/01/17 09:49 Dose: 250 mls/hr Ceftriaxone Sodium 1 gm/ (Sodium Chloride) 100 mls @ 100 mls/hr IVPB DAILY [facility] Last Admin: 08/02/17 10:14 Dose: 100 mls/hr Loperamide HCl (Imodium) 2 mg PO Q8 PRN PRN Reason: Diarrhea Multivitamins (Hexavitamin) 1 tab PO DAILY [facility] Last Admin: 08/02/17 10:14 Dose: 1 tab Ondansetron HCl (Zofran Tab) 4 mg PO Q8 PRN PRN Reason: Nausea/Vomiting Last Admin: 07/31/17 00:46 Dose: 4 mg Promethazine HCl (Phenergan Inj) 25 mg IM QID PRN PRN Reason: Nausea/Vomiting, Unable PO Saccharomyces Boulardii (Florastor) 250 mg PO BID [facility] Last Admin: 08/02/17 10:15 Dose: 250 mg Thiamine HCl (Vitamin B1 Tab) 100 mg PO DAILY [facility] Last Admin: 08/02/17 10:15 Dose: 100 mg Vitamin A (Vitamin A & D Oint Ud Foilpak) 1 ea TOP BID [facility] Last Admin: 08/02/17 10:14 Dose: 1 ea - Labs Labs: 08/02/17 07:38 08/02/17 07:38 PT 11.2 SECONDS (9.7-12.2) 07/25/17 01:26 INR 1.0 07/25/17 01:26 APTT 27 SECONDS (21-34) 07/25/17 01:26 - Constitutional Appears: Non-toxic - Head Exam Head Exam: ATRAUMATIC - Eye Exam Eye Exam: EOMI, Normal appearance Pupil Exam: PERRL - ENT Exam ENT Exam: Mucous Membranes Moist - Neck Exam Neck Exam: Full ROM. absent: Lymphadenopathy - Respiratory Exam Respiratory Exam: Clear to Ausculation Bilateral, NORMAL BREATHING PATTERN. absent: Rales, Rhonchi, Wheezes - Cardiovascular Exam Cardiovascular Exam: REGULAR RHYTHM, +S1, +S2 - GI/Abdominal Exam GI & Abdominal Exam: Soft, Normal Bowel Sounds. absent: Tenderness - Exam Exam: Testicular Tenderness - Extremities Exam Extremities Exam: absent: Calf Tenderness, Full ROM - Back Exam Back Exam: NORMAL INSPECTION. absent: CVA tenderness (L), CVA tenderness (R) - Neurological Exam Neurological Exam: Alert, Awake, Normal Gait, Oriented x3 - Psychiatric Exam Psychiatric exam: Normal Affect - Skin Skin Exam: Warm Assessment and Plan - Assessment and Plan (Free Text) Assessment: Pneumonia; resolving 08/02: AFB negative; however quant positive will give INH for 9 months as well as B6 supplement for prophylaxis; c/w with abx 08/01: AFB continue to be neg; quant positive; c/w contact; breathing is improved ; will monitor 07/31: mycobacteria negative x2 (prelim); Quanteferon Positive. Continue contact isolation. Mucinex for congestion. 07/30: mycobacteria negative (prelim); sputum culture negative. Quanteferon Positive. Continue contact isolation. Sputum culture- normal adali Urine legionella and mycoplasma negative influenza negative CT Chest 07/25 - finding highly suspicious for a multifocal bilateral groundglass pneumonia greatest in the upper lobe and lingula. small amount of mucus plugging or aspirated debris in the trachea and right mainstem brochus Ceftriaxone 1gram IVPB daily (started 07/25) Azithromycin 500mg IVPB daily (started 07/25) Duonebs prn f/u am labs on contact isolation Bacteremia; possible 08/02: pending repeat bcx; will f/u 08/01: patient remains afebrile, no WBC, only one bottle grew sensitive to all strep pneumo; will re-order -echo negative for vegetations, no murmur -f/u blood cultures -c/w ceftriaxone and azithromycin for now 07/31: WBC WNL Echo - negative for vegetation Blood cultures 07/23: prelim: gram positive cocci ID consulted, Dr. Vergara - help appreciated On Florastor Vanc trough 5.6 F/U next trough 07/28 at 21:00 Congestive Heart failure diastolic dysfunction new diagnosis Echo: LV is moderately dilated, EF 50-55%, Grade 1 abnormal relaxation pattern. LA is mildly dilated. trace aortic regurg. mitral regrug is trace to mild will avoid bblock for now due to hx drug/cocaine abuse. Will talk to patient about the dangers of taking beta block with cocaine/drug use Losartan 25mg PO daily Lipid panel within normal limits Alcohol Use disorder Monitor for signs of withdrawal Alcohol level on admission 206 folic acid/mv/thiamine dialy seizure/aspiration precautions Per psychiatry: - Librium - Psychoeducation - Encourage healthy lifestyle choices - Refer to inpatient rehab Polysubstance use disorder monitor for signs of withdrawal; patient was withdrawing f/u Psych recommendations - Dr. Franco: - Methadone Taper - Psychoeducation - Encourage healthy lifestyle choices - Refer to inpatient rehab Acute Kidney Injury Bun/ Cr elevated > pepcid and lovenox adjusted for renal dosing -f/u nephrology eval; thank you Dr. Mccloud -strict Sonja; patient is making adequate urine -will continue to monitor Check urine analysis, spot protein/creatinine and albumin/creatinine ratio Check ANCA (MPO and OK-3), Anti GBM antibody, C3/C4, RA factor/cryoglobulins Dose meds/antibiotics for reduced GFR. Avoid fleets enema/magnesium based laxatives. Avoid nephrotoxins/NSAIDs/ iodinated contrast (unless needed emergently) Glycemic control Hepatitis C; chronic -outpatient management -HIV/RPR negative Electrolyte imbalance -Hyperphosphatemia, P 6.1 - Phoslo BID [id number], f/u labs. P 5.4 -> continue to monitor. Testicular Tenderness -f/u testicular US -patient has unprotected sex w/ multiple women; will f/u GC/Chlym; no discharge at this moment Prophylactic measures Lovenox 40mg SC daily Pepcid 20mg PO BID Regular diet Colace 100mg TID for constipation Discussed with attending; all management and planning per Dr. Puentes.
[2017-08-02] MEDS: Azithromycin 500 MG in Sodium Chloride 0.9% 250 ML IVPB SCH (12:29)
[2017-08-02] MEDS: Pyridoxine 100 mg Tab PO SCH (13:24)
--- NOTE | 2017-08-02 15:07 | CP.PCM.PN ---
Subjective - Date & Time of Evaluation Date of Evaluation: 08/02/17 Time of Evaluation: 15:06 - Subjective Subjective: Nephrology Consultation: Assessment: Stable Acute Kidney Injury (N17.9) likely due to hemodynamic inury and ATN. normal UA argues againts Glomerulonephritis HTN (I12.9) PNEUMONIA polysubstance abuse with Eoth and heroin, smoker chronic Hep C + Plan No acute need for renal replacement therapy at this time. renal function improving Hypertension control with meds as ordered. hold ACEI/ARB due to ALBA Monitor Input/Output, daily weights and renal function with basic metabolic panel Check urine analysis, spot protein/creatinine and albumin/creatinine ratio Check ANCA (MPO and SD-3), Anti GBM antibody, C3/C4, RA factor/cryoglobulins Dose meds/antibiotics for reduced GFR. Avoid fleets enema/magnesium based laxatives. Avoid nephrotoxins/NSAIDs/ iodinated contrast (unless needed emergently) Glycemic control Further work up/management as per primary team Thanks for allowing me to participate in care of your patient. Will follow patient with you. Please call if any Qs Dr Agapito Conte Office: [phone] Chief Complaint; cough reason for consult; ALBA HPI: Pt is a 57 M with hx of polysubstance abuse with Eoth and heroin presented with complaints of SOB, cough with phlegm (blood streaks) and being manageed for pneumonia. renal consult for ALBA Denies OTC/herbal meds or NSAIDs No recent iodinated contrast exposure. episodes of low BP on 07/29 and 07/30 (90 /60s) renal function normal until 07/29/17 when cr osorio to 1.3 and thereafter stable around 3.5 ROS: Cardiovascular: No chest pain. Pulmonary:improved shortness of breath Gastrointestinal: c/o lower abdominal pain No nausea. No vomiting. Genitourinary: mild pain while urinating. Denies blood in urine. reports decreased urine output All other negative Physical Examination: General Appearance: Comfortable, in no acute respiratory distress, co-operative . Vitals reviewed and noted as below Head; Atraumatic, normocephalic ENT: no ulcers no thrush. Tongue is midline. Oropharynx: no rash or ulcers. EYES: Pupils are equal, round and reactive to light accommodation. Eye muscles and extraocular movement intact. Sclera is anicteric. Neck; supple no lymphadenopathy, no thyromegaly or bruit Lungs: Normal respiratory rate/effort. Breath sounds bilateral equal and basal crackle Heart: Normal rate. s1s2 normal. No rub or gallop. Extremities: no edema. No varicose veins Neurological: Patient is alert, awake and oriented to person, place and time. No focal deficit. Strength bilateral appropriate and equal Skin: Warm and dry. Normal turgor. No rash. Palpitation: Normal elasticity for age Abdomen: Abdomen is soft. Bowel sounds +. There is no abdominal tenderness, no guarding/rigidity no organomegaly Psych: normal insight and normal affect/mood MSK: no joint tenderness or swelling. Digits and nails normal, no deformity : kidney or bladder not palpable Labs/imaging reviewed. Past medical history, past surgical history, family history, social history, allergy reviewed and noted as below Family hx: no hx of CKD. Rest non-contributory renal imaging WNL initial UA normal Objective - Vital Signs/Intake and Output Vital Signs (last 24 hours): Temp Pulse Resp BP Pulse Ox 97.7 F 70 20 107/76 96 08/02/17 07:00 08/02/17 07:00 08/02/17 07:00 08/02/17 07:00 08/02/17 07:00 - Medications Medications: Current Medications Benzocaine (Orajel 7.5%) 0 gm MM Q6H PRN PRN Reason: Other Clonidine HCl (Catapres) 0.1 mg PO Q8 PRN PRN Reason: COWS Score More or Equal to 5 Last Admin: 07/31/17 19:26 Dose: 0.1 mg Docusate Sodium (Colace) 100 mg PO TID [facility] Last Admin: 08/02/17 13:23 Dose: 100 mg Enoxaparin Sodium (Lovenox) 30 mg SC DAILY [facility] Last Admin: 08/02/17 10:15 Dose: 30 mg Famotidine (Pepcid) 20 mg PO DAILY [facility] Last Admin: 08/02/17 10:14 Dose: 20 mg Folic Acid (Folic Acid) 1 mg PO DAILY [facility] Last Admin: 08/02/17 10:14 Dose: 1 mg Guaifenesin (Mucinex La) 600 mg PO BID [facility] Last Admin: 08/02/17 10:14 Dose: 600 mg Azithromycin 500 mg/ Sodium (Chloride) 250 mls @ 250 mls/hr IVPB DAILY [facility] Last Admin: 08/02/17 12:29 Dose: 250 mls/hr Ceftriaxone Sodium 1 gm/ (Sodium Chloride) 100 mls @ 100 mls/hr IVPB DAILY [facility] Last Admin: 08/02/17 10:14 Dose: 100 mls/hr Isoniazid (Niazid) 300 mg PO DAILY [facility] Last Admin: 08/02/17 13:24 Dose: 300 mg Loperamide HCl (Imodium) 2 mg PO Q8 PRN PRN Reason: Diarrhea Multivitamins (Hexavitamin) 1 tab PO DAILY [facility] Last Admin: 08/02/17 10:14 Dose: 1 tab Ondansetron HCl (Zofran Tab) 4 mg PO Q8 PRN PRN Reason: Nausea/Vomiting Last Admin: 07/31/17 00:46 Dose: 4 mg Promethazine HCl (Phenergan Inj) 25 mg IM QID PRN PRN Reason: Nausea/Vomiting, Unable PO Pyridoxine HCl (Vitamin B6) 100 mg PO DAILY [facility] Last Admin: 08/02/17 13:24 Dose: 100 mg Saccharomyces Boulardii (Florastor) 250 mg PO BID [facility] Last Admin: 08/02/17 10:15 Dose: 250 mg Thiamine HCl (Vitamin B1 Tab) 100 mg PO DAILY [facility] Last Admin: 08/02/17 10:15 Dose: 100 mg Vitamin A (Vitamin A & D Oint Ud Foilpak) 1 ea TOP BID [facility] Last Admin: 08/02/17 10:14 Dose: 1 ea - Labs Labs: 08/02/17 07:38 08/02/17 07:38 PT 11.2 SECONDS (9.7-12.2) 07/25/17 01:26 INR 1.0 07/25/17 01:26 APTT 27 SECONDS (21-34) 07/25/17 01:26
[2017-08-02] MEDS: Sodium Chloride 0.9% 1,000 ML IV SCH (15:22)
--- NOTE | 2017-08-02 18:50 | US ---
HISTORY: Pain. No history of recent/ related trauma provided TECHNIQUE: Realtime sonography through the scrotum with color and doppler flow. COMPARISON: None Available. FINDINGS: RIGHT TESTICLE: Measures 2 x 2.8 x 4.2 cm. Normal echotexture and flow. RIGHT EPIDIDYMIS: Epididymal head measures 0.8 x 1.2 cm. Epididymal cyst 1.2 x 0.8 cm LEFT TESTICLE: Measures 2 x 2.8 x 4.4 cm. Normal echotexture and flow. LEFT EPIDIDYMIS: Not visualized. HYDROCELE: Bilateral. Simple hydrocele on the right, small. Large complex hydrocele on the left with multiple septa at common debris measuring approximate 1.8 x 3 cm. VARICOCELE: Bilateral, approximately symmetrical. OTHER FINDINGS: None. IMPRESSION: Negative study for epididymitis, orchitis or torsion. Large complex hydrocele on the left. Small simple hydrocele on the right. Bilateral approximately symmetrical varicoceles.
[2017-08-02 23:47] VITALS: BP 107/76; PULSE 65; RESP 18; TEMP 98.3; O2SAT 97
[2017-08-03] MEDS: Sodium Chloride 0.9% 1,000 ML IV SCH (06:15)
[2017-08-03 06:37] LABS: BASO % 0.8 % (0.0-2.0); EOS # 0.2 K/uL (0.0-0.7); EOS % 2.8 % (0.0-4.0); HEMOGLOBIN 12.2 g/dL (12.0-18.0); LYMPH # 1.6 K/uL (1.0-4.3); LYMPH % 27.2 % (20.0-40.0); MEAN CELL VOLUME 88.6 fL (80.0-94.0); MEAN CORPUSCULAR HEMOGLOBIN 29.5 pg (27.0-31.0); MEAN CORPUSCULAR HGB CONC 33.3 g/dL (33.0-37.0); MEAN PLATELET VOLUME 8.1 fL (7.2-11.7); MONO # 0.8 K/uL (0.0-0.8); MONO % 13.1 % (0.0-10.0); NEUT # 3.3 K/uL (1.8-7.0); NEUT % 56.1 % (50.0-75.0); NRBC % 0.1 % (0.0-2.0); RBC 4.14 Mil/uL (4.40-5.90); RED CELL DISTRIBUTION WIDTH 13.7 % (11.5-14.5); WHITE BLOOD COUNT 5.9 K/uL (4.8-10.8)
[2017-08-03 07:00] LABS: ALB/GLOB RATIO 1.1 (1.0-2.1); ALBUMIN 3.4 g/dL (3.5-5.0); MAGNESIUM 2.1 mg/dL (1.6-2.3)
[2017-08-03] MEDS: guaiFENesin 600 mg ER Tab PO SCH (09:00)
[2017-08-03] MEDS: Saccharomyces Boulardi 250 mg Cap PO SCH (09:00)
[2017-08-03] MEDS: Multiple Vitamins Tab PO SCH (09:00)
[2017-08-03] MEDS: Vitamins A & D Oint UD Foilpak TOP SCH (09:00)
[2017-08-03] MEDS: Enoxaparin 30 mg Syringe SC SCH (09:06)
--- NOTE | 2017-08-03 10:05 | CP.PCM.PN ---
Subjective - Date & Time of Evaluation Date of Evaluation: 08/03/17 Time of Evaluation: 12:01 - Subjective Subjective: PGY2 Medicine Note for Dr. Puentes, all management as per Dr. Puentes Patient seen and examined today with Dr. Puentes; he has no complaints today and states he has not "coughed up blood" since yesterday and was reassured it wasn' t even blood from yesterday. The patient is table for d/c as per dr. puentes. Objective - Vital Signs/Intake and Output Vital Signs (last 24 hours): Temp Pulse Resp BP Pulse Ox 98.3 F 65 18 107/76 97 08/02/17 23:41 08/02/17 23:41 08/02/17 23:41 08/02/17 23:41 08/02/17 23:41 Intake and Output: 08/03/17 08/03/17 06:59 18:59 Intake Total 1400 Balance 1400 - Medications Medications: Current Medications Benzocaine (Orajel 7.5%) 0 gm MM Q6H PRN PRN Reason: Other Clonidine HCl (Catapres) 0.1 mg PO Q8 PRN PRN Reason: COWS Score More or Equal to 5 Last Admin: 07/31/17 19:26 Dose: 0.1 mg Docusate Sodium (Colace) 100 mg PO TID [facility] Last Admin: 08/03/17 09:00 Dose: 100 mg Enoxaparin Sodium (Lovenox) 30 mg SC DAILY [facility] Last Admin: 08/03/17 09:06 Dose: 30 mg Famotidine (Pepcid) 20 mg PO DAILY [facility] Last Admin: 08/03/17 09:00 Dose: 20 mg Folic Acid (Folic Acid) 1 mg PO DAILY [facility] Last Admin: 08/03/17 09:01 Dose: 1 mg Guaifenesin (Mucinex La) 600 mg PO BID [facility] Last Admin: 08/03/17 09:00 Dose: 600 mg Azithromycin 500 mg/ Sodium (Chloride) 250 mls @ 250 mls/hr IVPB DAILY [facility] Last Admin: 08/02/17 12:29 Dose: 250 mls/hr Ceftriaxone Sodium 1 gm/ (Sodium Chloride) 100 mls @ 100 mls/hr IVPB DAILY [facility] Last Admin: 08/02/17 10:14 Dose: 100 mls/hr Sodium Chloride (Sodium Chloride 0.9%) 1,000 mls @ 75 mls/hr IV .[id number] [facility] Stop: 08/03/17 15:16 Last Admin: 08/03/17 06:15 Dose: 75 mls/hr Isoniazid (Niazid) 300 mg PO DAILY [facility] Last Admin: 08/03/17 09:00 Dose: 300 mg Loperamide HCl (Imodium) 2 mg PO Q8 PRN PRN Reason: Diarrhea Multivitamins (Hexavitamin) 1 tab PO DAILY [facility] Last Admin: 08/03/17 09:00 Dose: 1 tab Ondansetron HCl (Zofran Tab) 4 mg PO Q8 PRN PRN Reason: Nausea/Vomiting Last Admin: 07/31/17 00:46 Dose: 4 mg Promethazine HCl (Phenergan Inj) 25 mg IM QID PRN PRN Reason: Nausea/Vomiting, Unable PO Pyridoxine HCl (Vitamin B6) 100 mg PO DAILY [facility] Last Admin: 08/02/17 13:24 Dose: 100 mg Saccharomyces Boulardii (Florastor) 250 mg PO BID [facility] Last Admin: 08/03/17 09:00 Dose: 250 mg Thiamine HCl (Vitamin B1 Tab) 100 mg PO DAILY [facility] Last Admin: 08/03/17 09:01 Dose: 100 mg Vitamin A (Vitamin A & D Oint Ud Foilpak) 1 ea TOP BID [facility] Last Admin: 08/03/17 09:00 Dose: 1 ea - Labs Labs: 08/03/17 06:30 08/03/17 06:30 PT 11.2 SECONDS (9.7-12.2) 07/25/17 01:26 INR 1.0 07/25/17 01:26 APTT 27 SECONDS (21-34) 07/25/17 01:26 - Constitutional Appears: Non-toxic - Head Exam Head Exam: ATRAUMATIC - Eye Exam Eye Exam: EOMI - ENT Exam ENT Exam: Mucous Membranes Moist - Respiratory Exam Respiratory Exam: Clear to Ausculation Bilateral - Cardiovascular Exam Cardiovascular Exam: REGULAR RHYTHM - GI/Abdominal Exam GI & Abdominal Exam: Soft - Extremities Exam Extremities Exam: Full ROM. absent: Calf Tenderness - Back Exam Back Exam: absent: CVA tenderness (L), CVA tenderness (R) Assessment and Plan - Assessment and Plan (Free Text) Assessment: Pneumonia; resolving 2/16: c/w INH +B6 for 9 months total tx 08/02: AFB negative; however quant positive will give INH for 9 months as well as B6 supplement for prophylaxis; c/w with abx 08/01: AFB continue to be neg; quant positive; c/w contact; breathing is improved ; will monitor 07/31: mycobacteria negative x2 (prelim); Quanteferon Positive. Continue contact isolation. Mucinex for congestion. 07/30: mycobacteria negative (prelim); sputum culture negative. Quanteferon Positive. Continue contact isolation. Sputum culture- normal adali Urine legionella and mycoplasma negative influenza negative CT Chest 07/25 - finding highly suspicious for a multifocal bilateral groundglass pneumonia greatest in the upper lobe and lingula. small amount of mucus plugging or aspirated debris in the trachea and right mainstem brochus Ceftriaxone 1gram IVPB daily (started 07/25) Azithromycin 500mg IVPB daily (started 07/25) Duonebs prn f/u am labs on contact isolation Bacteremia; possible 08/03: repeat bcx negative to date 08/02: pending repeat bcx; will f/u 08/01: patient remains afebrile, no WBC, only one bottle grew sensitive to all strep pneumo; will re-order -echo negative for vegetations, no murmur -f/u blood cultures -c/w ceftriaxone and azithromycin for now 07/31: WBC WNL Echo - negative for vegetation Blood cultures 07/23: prelim: gram positive cocci ID consulted, Dr. Vergara - help appreciated On Florastor Vanc trough 5.6 F/U next trough 07/28 at 21:00 Congestive Heart failure diastolic dysfunction new diagnosis Echo: LV is moderately dilated, EF 50-55%, Grade 1 abnormal relaxation pattern. LA is mildly dilated. trace aortic regurg. mitral regrug is trace to mild will avoid bblock for now due to hx drug/cocaine abuse. Will talk to patient about the dangers of taking beta block with cocaine/drug use Losartan 25mg PO daily Lipid panel within normal limits Alcohol Use disorder Monitor for signs of withdrawal Alcohol level on admission 206 folic acid/mv/thiamine dialy seizure/aspiration precautions Per psychiatry: - Librium - Psychoeducation - Encourage healthy lifestyle choices - Refer to inpatient rehab Polysubstance use disorder monitor for signs of withdrawal; patient was withdrawing f/u Psych recommendations - Dr. Franco: - Methadone Taper - Psychoeducation - Encourage healthy lifestyle choices - Refer to inpatient rehab Acute Kidney Injury Bun/ Cr elevated > pepcid and lovenox adjusted for renal dosing -f/u nephrology eval; thank you Dr. Mccloud -strict Sonja; patient is making adequate urine -will continue to monitor Check urine analysis, spot protein/creatinine and albumin/creatinine ratio Check ANCA (MPO and ND-3), Anti GBM antibody, C3/C4, RA factor/cryoglobulins Dose meds/antibiotics for reduced GFR. Avoid fleets enema/magnesium based laxatives. Avoid nephrotoxins/NSAIDs/ iodinated contrast (unless needed emergently) Glycemic control Hepatitis C; chronic -outpatient management -HIV/RPR negative Electrolyte imbalance -Hyperphosphatemia, P 6.1 - Phoslo BID p6aucuh, f/u labs. P 5.4 -> continue to monitor. Testicular Tenderness -f/u testicular US -patient has unprotected sex w/ multiple women; will f/u GC/Chlym; no discharge at this moment Prophylactic measures Lovenox 40mg SC daily Pepcid 20mg PO BID Regular diet Colace 100mg TID for constipation The patient is stable for d/c as per Dr. Puentes The patient needs to take isoniazid for 9 months with B6 DO NOT MISS B6 as you will develop intractable pain otherwise f/u with TB clinic in [facility]; it is free and they will provide you with more medications and follow up and social work also take florastor to prevent diarrhea from occuring with antibiotic use you need to follow up with your GI doctor here because you are Hep C positive; do not have unprotected sex, share IV drugs or snorting devices as you will transfer the virus to other individuals You also need to follow up with the neprhologist here for your acute kidney injury which is resolving; make an appointment within the week the patient completed 1wk of IV abx and does not need any more abx as outpatient than stated above you also need to f/u with cardiology as you have a new diagnosis of congestive heart failure; you will need to take losartan 25mg daily, aspirin 81mg, as well as metoprolol 25mg XR Discussed with attending; all management and planning per Dr. Puentes. Congested Heart Failure - CM - Type of Heart Failure: Diastolic dysfunction:: Acute - LVF prior to this hospilization,if known LVF prior to this hospilization: Election Fraction greater than 40% - Ejection Fraction % Fraction %: 45 - Source Source: Echo - JOE or ARB JOE or ARB: Name/dose/frequency: ARb Losartan 25mg daily - Beta Lara Beta Lara prescribed: Name/dose/frequency: Toprol xl 25mg daily - Digoxin Contraindication: Not indicated - Diuretic Diuretic Therapy (lasix, thiazides, aldactone) (jose for EF less than 30%): not indicated - Nitrate Therapy Contraindication:: Not indicated - Smoking Cessation Smoking Cessation Counseling: Yes - Recommendation Recommendation for ICD referral or CTR: No - Followup Appointment Follow Up with: cardiology
[2017-08-03] MEDS: Pyridoxine 100 mg Tab PO SCH (10:45)
[2017-08-03] MEDS: Azithromycin 500 MG in Sodium Chloride 0.9% 250 ML IVPB SCH (11:00)
[2017-08-07 16:36] LABS: ANCA SCREEN NEGATIVE (NEGATIVE)
--- NOTE | 2017-08-09 10:02 | DS ---
HOSPITAL COURSE: Chief complaint weakness, fatigue, tiredness. Patient came to the ER, advised admission. The patient placed on bed rest, IV fluid, supportive care. The patient showed gradual improvement, discharged to be followed as outpatient. Mona Puentes MD
== END 2017-08-03 14:23 | disposition home or self-care (01) | DRG 541 ==
LOC: C.ER 00:04 → C.9E 03:44 → C.3T 11:31 → C.5S 07-26 01:19
PROVIDERS: ADMIT Internal Medicine Pulmonary Disease; ATTEND Internal Medicine Pulmonary Disease
PROC: HZ56ZZZ Individual Psychotherapy for Substance Abuse Treatment, Psychoeducation (ICD-10-PCS; principal; 2017-07-26)
PROC: HZ81ZZZ Medication Management for Substance Abuse Treatment, Methadone Maintenance (ICD-10-PCS; 2017-07-26)
PROC: HZ89ZZZ Medication Management for Substance Abuse Treatment, Other Replacement Medication (ICD-10-PCS; 2017-07-26)
DX: J18.9 Pneumonia, unspecified organism (principal); R04.2 Hemoptysis; N17.0 Acute kidney failure with tubular necrosis; R78.81 Bacteremia; F11.23 Opioid dependence with withdrawal; F10.239 Alcohol dependence with withdrawal, unspecified; I11.0 Hypertensive heart disease with heart failure; I50.30 Unspecified diastolic (congestive) heart failure; B18.2 Chronic viral hepatitis C; E83.39 Other disorders of phosphorus metabolism; F17.210 Nicotine dependence, cigarettes, uncomplicated; J45.909 Unspecified asthma, uncomplicated; K59.00 Constipation, unspecified; N43.3 Hydrocele, unspecified; Z90.49 Acquired absence of other specified parts of digestive tract